=== PATIENT | female | born 1975 | race Caucasian/White ===

== ENCOUNTER 2017-07-30 13:00 | Emergency (ER) | payer MEDICAID, SELFPAY ==
[2017-07-30 13:01] VITALS: BP 126/76; PULSE 108; RESP 20; TEMP 37; O2SAT 96; BMI 29.0
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
--- NOTE | 2017-07-30 14:08 | PC.NURSE ---
1347:ADVISED DR CORTES THAT PT IS REPORTING BLURRED VISION AND ABDOMINAL PAIN. MD ORDERS HEAD CT AND FACIAL CT. WHEN RADIOLOGY COMES TO ROOM TO TRANSPORT PT TO RADIOLOGY, PT STATES, NO, I DON'T NEED ALL THAT, I JUST WANT TO GO HOME. PT EDUCATED ON RADIOLOGIC TESTS AND BLURRED VISION AND THAT THIS IS AGAINST MEDICAL ADVICE. MADE AWARE. PT SIGN'S AMA FORM FOR REFUSAL OF CT SCANS. PT STATES UNDERSTANDING OF REFUSAL.
[2017-07-30 14:09] VITALS: BP 113/68; PULSE 91
[2017-07-30 14:14] VITALS: BP 118/75; PULSE 97
[2017-07-30 14:15] VITALS: BP 111/72; PULSE 105
[2017-07-30 14:16] VITALS: BP 111/72; PULSE 98; RESP 18; TEMP 36.8; O2SAT 98
== END 2017-07-30 14:34 | disposition home or self-care (01) ==
LOC: ER 14:23
PROVIDERS: Emergency Provider Emergency Medicine
DX: K04.7 Periapical abscess without sinus (principal); K08.531 Fractured dental restorative material with loss of material; Z88.0 Allergy status to penicillin; Z88.5 Allergy status to narcotic agent; F17.200 Nicotine dependence, unspecified, uncomplicated
CPT/HCPCS: 96372; 99283

== ENCOUNTER 2019-03-27 19:43 | Inpatient (IN) ==
[2019-03-27 20:04] LABS: Basophils % 0.2 % (0.1-2.0); Eosinophils # 0.1 K/mm3 (0.0-0.4); Eosinophils % 0.6 % (0.1-12.0); Hematocrit 41.4 % (37.0-47.0); Hemoglobin 12.9 g/dL (12.2-16.2); Lymphocytes # 2.1 K/mm3 (0.7-4.5); Mean Corpuscular HGB Conc 31.2 g/dL (31.8-35.4); Mean Corpuscular Volume 90.6 fl (81-99); Monocytes # 0.8 K/mm3 (0.1-1.0); Monocytes % 6.7 % (1.7-9.3); Neutrophils # 8.9 K/mm3 (1.8-7.8); Neutrophils % 74.5 % (37.0-80.0); Platelet Count 341 K/mm3 (142-424); Red Blood Count 4.58 M/mm3 (4.20-5.40); Red Cell Distribution Width 14.1 % (11.5-17.5); White Blood Count 11.9 K/mm3 (4.8-10.8)
[2019-03-27 20:16] LABS: Albumin Level 3.7 gm/dL (3.4-5.0); Anion Gap 13.5 mEq/L (5-15); Bilirubin,Total 0.5 mg/dL (0.2-1.0); Calcium 8.3 mg/dL (8.5-10.1); Globulin 3.8 gm/dl (1.3-3.2); Total Protein,Serum 7.5 gm/dL (6.4-8.2)
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
[2019-03-28 04:53] LABS: Microscopic, Urine URINE MICROSCOPIC (MICROSCOPIC)
[2019-03-28 04:54] LABS: Appearance,Urine CLEAR (Clear); Bilirubin,Urine Negative (Negative); Blood, Urine Negative (Negative); Color,Urine YELLOW (Yellow); Glucose,Urine (UA) Negative (Negative); Ketones,Urine Negative (Negative); Leukocyte Esterase,Urine TRACE (Negative); Protein,Urine Negative (Negative); Specific Gravity, Urine <= 1.005 (1.005-1.030); Urobilinogen,Urine 0.2 EU/dl (0.2)
[2019-03-28 05:03] LABS: Amphetamine/Metha Screen,Urine Negative ng/mL (<1000); Barbiturates Screen,Urine Negative ng/mL (<200); Benzodiazepines Screen,Urine Positive ng/mL (<200); Cannabinoid Screen,Urine Negative ng/mL (<50); Cocaine Screen,Urine Negative ng/mL (<300); Methadone Screen,Urine Negative ng/mL (<300); Opiate Screen,Urine Positive ng/mL (<300); Phencyclidine Screen,Urine Negative ng/mL (<25)
[2019-03-28 05:20] LABS: Bacteria,Urine 1+ /lpf
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
[2019-03-28 06:58] LABS: Basophils % 0.4 % (0.1-2.0); Eosinophils # 0.1 K/mm3 (0.0-0.4); Eosinophils % 1.4 % (0.1-12.0); Hematocrit 37.4 % (37.0-47.0); Lymphocytes # 2.5 K/mm3 (0.7-4.5); Lymphocytes % 25.7 % (10-50); Mean Corpuscular HGB Conc 31.1 g/dL (31.8-35.4); Mean Corpuscular Volume 89.8 fl (81-99); Mean Platelet Volume 8.2 fl (7.4-10.4); Monocytes # 0.7 K/mm3 (0.1-1.0); Monocytes % 6.6 % (1.7-9.3); Neutrophils # 6.5 K/mm3 (1.8-7.8); Neutrophils % 65.9 % (37.0-80.0); Platelet Count 320 K/mm3 (142-424); Red Blood Count 4.16 M/mm3 (4.20-5.40); Red Cell Distribution Width 14.1 % (11.5-17.5); White Blood Count 9.9 K/mm3 (4.8-10.8)
[2019-03-28 07:07] LABS: Anion Gap 19.4 mEq/L (5-15); Calcium 8.4 mg/dL (8.5-10.1)
[2019-03-28 07:11] LABS: Hemoglobin 11.6 g/dL (12.2-16.2)
[2019-03-28 07:14] LABS: Chol/HDL Ratio 3.3 (1-3.5)
--- NOTE | 2019-03-28 07:42 | Pharmacy Consult Notes ---
[facility] Pharmacy VTE Monitoring - Patient Demographics Admission date: 03/27/19 Report Date: 03/28/19 Time: 07:42 Allergies/Adverse Reactions: Patient Allergies codeine [CODEINE] Allergy (Severe, Verified 07/30/17 13:39) Nausea penicillin G [PENICILLIN G] Allergy (Mild, Verified 07/30/17 13:39) Height: 1.65 m Weight: 81.647 kg Patient Problems: Current Active Problems Pancreatitis (Acute) Weakness of lower extremity (Acute) Lumbar disc disorder with myelopathy (Acute) - VTE Risk Labs: VTE Related Lab Results Hgb 11.6 g/dL (12.2-16.2) L D 03/28/19 06:25 Hct 37.4 % (37.0-47.0) 03/28/19 06:25 Plt Count 320 K/mm3 (142-424) 03/28/19 06:25 BUN 9 mg/dL (7-18) D 03/28/19 06:25 Creatinine 0.70 mg/dL (0.55-1.02) D 03/28/19 06:25 Estimated Creat Clear 134 mL/min (50-200) 03/28/19 06:25 Was VTE Risk Assessment Performed: Yes VTE Score: 1 VTE Risk Level: Very Low Risk - Prophylaxis VTE Prophylaxis Ordered?: Yes Types of VTE Prophylaxis: TEDS Knee High Location of Applied Device: Bilateral Lower Extremeties - VTE Diagnosis Confirmed Treatment or plan recommended: Continue Current Treatment
--- NOTE | 2019-03-29 07:11 | Progress Note ---
Internal Medicine - PN: Subj *Date: 03/29/19 *Time: 07:08 Interval history: Patient reports persistent abdominal pain although decreased in intensity compared to yesterday. She has tolerated both clear and full liquids and is hungry this morning. She denies nausea or vomiting. She reports continued difficulty moving the left leg especially with flexion of the left hip and extension of the left knee. She admits she is also developed some pain in her back. CT of the lumbar spine was performed yesterday but official report is unavailable at this time. Exam Vital signs and Labs for Last 24 Hours: Temp Pulse Resp BP Pulse Ox 98.6 F 85 18 122/68 97 03/29/19 03:30 03/29/19 03:30 03/29/19 03:30 03/29/19 03:30 03/28/19 20:15 Laboratory Results - last 24 hr 03/28/19 06:25: Hgb 11.6 L D 03/28/19 06:25: Sodium 137, Potassium 3.4 L, Chloride 96 L, Carbon Dioxide 25, Anion Gap 19.4 H, BUN 9 D, Creatinine 0.70 D, Estimated Creat Clear 134, Estimated GFR 91, Est GFR ( Amer) 111 D, Glucose 161 H, Calcium 8.4 L 03/28/19 06:25: Magnesium 1.9, Triglycerides 71, Cholesterol 108 L, LDL Cholesterol 61, VLDL Cholesterol 14, HDL Cholesterol 33, Cholesterol/HDL Ratio 3.3, Lipase 2722 H I & O for Last 24 hours: Intake & Output 03/26/19 03/27/19 03/28/19 03/29/19 11:59 11:59 11:59 11:59 Weight 180 lb Narrative: Patient is in no distress this morning. Abdomen is soft and nontender. Musculoskeletal exam reveals weakness with left hip flexion and left knee extension. I am unable to elicit a patellar reflex on the left this morning. Assessment and Plan (1) Pancreatitis Current visit: Yes Status: Acute Qualifiers: Chronicity: acute Pancreatitis type: unspecified pancreatitis type Acute pancreatitis complication: no infection or necrosis Qualified Code(s): K85.90 - Acute pancreatitis without necrosis or infection, unspecified Category: Medical Code(s): K85.90 - Acute pancreatitis without necrosis or infection, unspecified (2) Lumbar disc disorder with myelopathy Current visit: Yes Status: Acute Category: Medical Code(s): M51.06 - Intervertebral disc disorders with myelopathy, lumbar region - Assessment and plan all Dx Assessment and Plan for all problems:: 1. Advance diet. Regarding pancreatitis if she tolerates her low-fat diet she can be discharged home 2. Awaiting CT scan of lumbar spine report. Further decision making once that is available. I suspect patient is going to need neurosurgical evaluation in the near future
[2019-03-29 07:57] LABS: Albumin Level 3.1 gm/dL (3.4-5.0); Anion Gap 10.6 mEq/L (5-15); Basophils % 0.1 % (0.1-2.0); Bilirubin,Direct 0.1 mg/dL (0.0-0.2); Bilirubin,Indirect 0.1 mg/dL (0.0-0.9); Bilirubin,Total 0.2 mg/dL (0.2-1.0); Calcium 8.8 mg/dL (8.5-10.1); Eosinophils % 0.1 % (0.1-12.0); Hematocrit 34.6 % (37.0-47.0); Hemoglobin 10.4 g/dL (12.2-16.2); Lymphocytes # 2.2 K/mm3 (0.7-4.5); Lymphocytes % 13.7 % (10-50); Monocytes # 0.9 K/mm3 (0.1-1.0); Monocytes % 5.5 % (1.7-9.3); Neutrophils # 13.1 K/mm3 (1.8-7.8); Neutrophils % 80.6 % (37.0-80.0); Platelet Count 320 K/mm3 (142-424); Red Blood Count 3.81 M/mm3 (4.20-5.40); Total Protein,Serum 6.7 gm/dL (6.4-8.2); White Blood Count 16.3 K/mm3 (4.8-10.8)
[2019-03-29 09:56] LABS: Lymphocytes % 11 % (10-50); Monocytes % 5 % (2-9); Neutrophils % 82 % (42-76); Total Cells Counted 100
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
== END 2019-03-29 19:00 | disposition home or self-care (01) | DRG 439 ==
LOC: ER 19:43 → OB 19:43 → OBSVTOIN 03-28 01:09 → OB 03-28 01:36
PROVIDERS: ADMIT Internal Medicine Adolescent Medicine; ATTEND Family Medicine
CPT/HCPCS: 36415; 70450; 71010; 71045; 72125; 72131; 72148; 72170; 74177; 76376; 80048; 80053; 80061; 80076; 80305; 81001; 83690; 83735; 85007; 85014; 85018; 85025; 85048; 85049; 85651; 86140; 96374; 96375; 99285; J2405; Q9967

== ENCOUNTER 2019-03-30 18:28 | Outpatient (CLI) | payer MEDICAID, SELFPAY ==
[2019-03-30 20:00] VITALS: BP 138/80; PULSE 78; RESP 16; TEMP 36.7; O2SAT 99
== END 2019-03-30 20:00 | disposition home or self-care (01) ==
LOC: INF 18:29
PROVIDERS: PCP Family Medicine; Visit Provider Family Medicine
DX: M51.06 Intervertebral disc disorders with myelopathy, lumbar region (principal)
CPT/HCPCS: 96365; 96366

== ENCOUNTER 2019-10-22 17:49 | Emergency (ER) | payer MEDICAID, SELFPAY ==
[2019-10-22 18:18] VITALS: BP 144/94; PULSE 100; RESP 18; TEMP 36.8; O2SAT 99; BMI 27.4
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
[2019-10-22 18:32] LABS: Microscopic, Urine URINE MICROSCOPIC (MICROSCOPIC)
[2019-10-22 18:35] VITALS: BP 144/94; PULSE 100; RESP 18; TEMP 36.8; O2SAT 99
[2019-10-22 18:46] LABS: Appearance,Urine CLEAR (Clear); Blood, Urine Negative (Negative); Color,Urine YELLOW (Yellow); Glucose,Urine (UA) Negative (Negative); Ketones,Urine Negative (Negative); Leukocyte Esterase,Urine Negative (Negative); Nitrate,Urine Negative (Negative); Protein,Urine TRACE (Negative); Specific Gravity, Urine >= 1.030 (1.005-1.030); Urobilinogen,Urine 0.2 EU/dl (0.2)
[2019-10-22 19:21] LABS: Bilirubin,Urine Negative (Negative)
[2019-10-22 19:22] LABS: Bacteria,Urine Trace /lpf; WBC,Urine Occasional #/hpf (0-3)
[2019-10-25 10:28] LABS: Neisseria gonorrhoeae, NAA Negative (Negative)
== END 2019-10-22 18:43 | disposition home or self-care (01) ==
PROVIDERS: Emergency Provider Nurse Practitioner Family
DX: Z20.2 Contact with and (suspected) exposure to infections with a predominantly sexual mode of transmission (principal); Z88.0 Allergy status to penicillin
CPT/HCPCS: 81001; 87086; 87491; 87591; 99201

== ENCOUNTER 2020-05-25 02:53 | Emergency (ER) | payer MEDICAID, SELFPAY ==
[2020-05-25] VITALS (9 sets, daily range): BP systolic 116–152; BP diastolic 75–92; PULSE 75–135; RESP 12–22; TEMP 36.8; O2SAT 94–98; BMI 25.0
--- NOTE | 2020-05-25 03:08 | XR_ITS ---
PROCEDURE: XR CHEST PORTABLE Referring Doctor: Mir Goyal Patient Age:44Y CLINICAL HISTORY: overdose Unable to give history COMPARISON: No exams were available for comparison FINDINGS: Portable upright CXR performed today but compared to March 2019 and February 2018 CXR. Less optimal inspiration this somewhat accentuates a crowds markings towards bases with minor atelectasis suggested towards the lung bases but There also appears to be minimal vascular congestion compared to previous studies accentuation of upper lobe vessels on this upright portable; although the heart appears normal upper normal size. Only slightly larger than previous studies but this is in part accentuated by the portable AP CXR technique today No definitive focal pneumonia. Upper normal markings project over the anterior left 4th rib-suspect most likely reflecting some mild atelectasis and chronic changes and doubt early infiltrate No pneumothorax no pleural effusion. Chest wall intact. Nolvia and superior mediastinal structures reasonably stable slightly more generous right nolvia most likely reflects the less optimal inspiration IMPRESSION: Less optimal inspiration accentuates markings bilaterally. With suggestion of minor basilar atelectasis Upper normal density projected over the left anterior left 4th rib end I suspect reflect minimal atelectasis along with costochondral calcification Suggestion mild vascular engorgement with mid slight accentuation of upper lobe vascularity versus prior CXR studies. Heart upper normal in size.-correlation required Dictated by: Gabino Ewing MD 05/25/2020 11:43 Gabino Ewing MD in [place] 05/25/2020 11:43
[2020-05-25 03:42] LABS: Microscopic, Urine URINE MICROSCOPIC (MICROSCOPIC)
[2020-05-25 03:47] LABS: Basophils # 0.1 K/mm3 (0-0.2); Basophils % 0.6 % (0.1-2.0); Eosinophils # 0.1 K/mm3 (0.0-0.4); Eosinophils % 0.6 % (0.1-12.0); Hematocrit 36.9 % (37.0-47.0); Hemoglobin 12.7 g/dL (12.2-16.2); Lymphocytes % 30.7 % (10-50); Mean Corpuscular HGB Conc 34.4 g/dL (31.8-35.4); Mean Corpuscular Hemoglobin 29.6 pg (27.0-31.2); Mean Platelet Volume 8.2 fl (7.4-10.4); Monocytes # 0.8 K/mm3 (0.1-1.0); Neutrophils # 5.9 K/mm3 (1.8-7.8); Neutrophils % 60.1 % (37.0-80.0); Platelet Count 283 K/mm3 (142-424); Red Blood Count 4.29 M/mm3 (4.20-5.40); White Blood Count 9.9 K/mm3 (4.8-10.8)
[2020-05-25 03:53] LABS: Appearance,Urine CLEAR (Clear); Bilirubin,Urine Negative (Negative); Blood, Urine Negative (Negative); Color,Urine YELLOW (Yellow); Glucose,Urine (UA) Negative (Negative); Ketones,Urine Negative (Negative); Leukocyte Esterase,Urine Negative (Negative); Nitrate,Urine Negative (Negative); PH,Urine 6.5 (5.0-8.5); Protein,Urine Negative (Negative); Urobilinogen,Urine 0.2 EU/dl (0.2)
[2020-05-25 04:01] LABS: Barbiturates Screen,Urine Negative ng/ml (<200); Squamous Epithelial Cell,Urine Occasional #/hpf (0-5)
[2020-05-25 04:02] LABS: Benzodiazepines Screen,Urine Positive ng/ml (<200)
[2020-05-25 04:02] LABS: Alanine Aminotransferase 59 U/L (12-78); Albumin Level 4.2 g/dl (3.5-5.0); Albumin/Globulin Ratio 1.2 (1.1-1.8); Alkaline Phosphatase 129 U/L (38-126); Anion Gap 11.6 mEq/L (5-15); Aspartate Amino Transferase 68 U/L (14-36); Bilirubin,Total 0.5 mg/dl (0.2-1.3); Blood Urea Nitrogen 10 mg/dl (7-17); Calcium 9.5 mg/dl (8.4-10.2); Carbon Dioxide 26 mmol/L (22.0-30.0); Chloride 104 mmol/L (98-107); Creatinine Clearance Estimated 133 mL/min (50-200); Estimated Glomerular Filt Rate 109 ml/min (>60); GFR (African American) 131 ML/MIN (>60); Globulin 3.5 g/dL (1.3-3.2); Glucose 111 mg/dl (74-100); Potassium 3.6 mmoL/L (3.5-5.1); Sodium 138 mmol/L (136-145); Total Protein,Serum 7.7 g/dl (6.3-8.2)
[2020-05-25 04:03] LABS: Amphetamine/Metha Screen,Urine Positive ng/ml (<1000); Cocaine Screen,Urine Negative ng/ml (<300)
[2020-05-25 04:04] LABS: Methadone Screen,Urine Negative ng/ml (<300)
[2020-05-25 04:05] LABS: Cannabinoid Screen,Urine Negative ng/ml (<50); Opiate Screen,Urine Negative ng/ml (<300)
[2020-05-25 04:05] LABS: Ethyl Alcohol < 10 mg/dl (0-10)
[2020-05-25 04:06] LABS: Salicylate < 1.0 mg/dL (2.0-20.0)
[2020-05-25 04:06] LABS: Phencyclidine Screen,Urine Negative ng/ml (<25)
[2020-05-25 04:16] LABS: Coronavirus 19 IgG Antibody Negative (Negative); Coronavirus 19 IgM Antibody Negative (Negative)
[2020-05-25 04:17] LABS: Acetaminophen < 10 ug/ml (10-30)
[2020-05-25 04:19] LABS: Procalcitonin 0.054 ng/mL (0.0-2.0)
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
--- NOTE | 2020-05-25 06:25 | PC.NURSE ---
call placed to gordon, mother-per patient's request. stated she can't drive till daylight but that she will be here.
--- NOTE | 2020-05-25 08:07 | PC.NURSE ---
Pt brother called requesting information about pt, pt said i could tell him, he said he would come and get her.
== END 2020-05-25 08:26 | disposition home or self-care (01) ==
PROVIDERS: Emergency Provider Emergency Medicine
DX: T40.1X1A Poisoning by heroin, accidental (unintentional), initial encounter (principal); Y92.019 Unspecified place in single-family (private) house as the place of occurrence of the external cause; F17.210 Nicotine dependence, cigarettes, uncomplicated
CPT/HCPCS: 36415; 71045; 80053; 80305; 80329; 81001; 84145; 85025; 86328; 99284

== ENCOUNTER 2020-11-03 21:34 | Emergency (ER) | payer MEDICAID, SELFPAY ==
[2020-11-03 21:32] VITALS: BP 131/96; PULSE 117; RESP 19; TEMP 36.7; O2SAT 98; BMI 28.1
--- NOTE | 2020-11-03 21:57 | PC.NURSE ---
pt refused IV placement, lab drawn, or urine collection. Pt was assisted to the BR, given feminine hygiene products.
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
[2020-11-03 22:10] VITALS: BP 134/90; PULSE 109; RESP 18; TEMP 36.7; O2SAT 98
== END 2020-11-03 22:15 | disposition home or self-care (01) ==
PROVIDERS: Emergency Provider Emergency Medicine
DX: Z00.8 Encounter for other general examination (principal); F17.210 Nicotine dependence, cigarettes, uncomplicated; Z79.899 Other long term (current) drug therapy; Z88.5 Allergy status to narcotic agent
CPT/HCPCS: 99282

== ENCOUNTER 2020-12-09 01:32 | Emergency (ER) | payer MEDICAID, SELFPAY ==
--- NOTE | 2020-12-09 01:25 | ECG_ITS ---
APPROVED REPORT Exam: Resting ECG HR:116 bpm ECG Measurements Heart Rate 116 AXES OK 132 P 73 QRSd 72 QRS 72 QT 350 T 54 QTc 486 Conclusion Sinus tachycardia Otherwise normal ECG Electronically signed by : Johnny Johnson, 12/09/2020 21:59:41
[2020-12-09 01:30] VITALS: BP 125/94; PULSE 119; RESP 16; TEMP 36.7; O2SAT 98; BMI 24.3
--- NOTE | 2020-12-09 01:38 | XR_ITS ---
PROCEDURE INFORMATION: Exam: XR Chest Exam date and time: 12/09/2020 1:38 AM Age: 45 years old Clinical indication: Shortness of breath; Patient HX: Overdose PT SOB TECHNIQUE: Imaging protocol: XR of the chest. Views: 1 view. Total images: 1 COMPARISON: CR XR CHEST PORTABLE 05/25/2020 3:18 AM FINDINGS: Lungs: Unremarkable. No consolidation. Pleural spaces: Unremarkable. No pleural effusion. No pneumothorax. Heart/Mediastinum: Unremarkable. No cardiomegaly. Bones/joints: Unremarkable. IMPRESSION: No acute findings.
[2020-12-09 02:01] LABS: Basophils % 0.4 % (0.1-2.0); Eosinophils # 0.1 K/mm3 (0.0-0.4); Eosinophils % 1.4 % (0.1-12.0); Hematocrit 35.2 % (37.0-47.0); Hemoglobin 11.7 g/dL (12.2-16.2); Lymphocytes % 19.4 % (10-50); Mean Corpuscular HGB Conc 33.3 g/dL (31.8-35.4); Monocytes # 0.4 K/mm3 (0.1-1.0); Monocytes % 3.6 % (1.7-9.3); Neutrophils # 7.7 K/mm3 (1.8-7.8); Neutrophils % 75.3 % (37.0-80.0); Platelet Count 304 K/mm3 (142-424); Red Blood Count 4.04 M/mm3 (4.20-5.40); Red Cell Distribution Width 13.2 % (11.5-17.5); White Blood Count 10.3 K/mm3 (4.8-10.8)
[2020-12-09 02:03] LABS: Alanine Aminotransferase 65 U/L (12-78); Albumin Level 4.7 g/dl (3.5-5.0); Alkaline Phosphatase 108 U/L (38-126); Anion Gap 11.9 mEq/L (5-15); Aspartate Amino Transferase 59 U/L (14-36); Bilirubin,Direct 0.4 mg/dl (0.0-0.4); Bilirubin,Indirect 0.1 mg/dL (0.0-0.9); Bilirubin,Total 0.5 mg/dl (0.2-1.3); Bilirubin,Unconjugated 0.1 mg/dL (0.0-1.1); Blood Urea Nitrogen 9 mg/dl (7-17); Calcium 9.2 mg/dl (8.4-10.2); Carbon Dioxide 27 mmol/L (22.0-30.0); Chloride 107 mmol/L (98-107); Creatinine Clearance Estimated 102 mL/min (50-200); Estimated Glomerular Filt Rate 78 ml/min (>60); GFR (African American) 94 ML/MIN (>60); Glucose 117 mg/dl (74-100); Potassium 3.9 mmoL/L (3.5-5.1); Sodium 142 mmol/L (136-145); Total Protein,Serum 8.5 g/dl (6.3-8.2)
[2020-12-09 02:05] LABS: Acetaminophen < 10 ug/ml (10-30); Salicylate < 1.0 mg/dL (2.0-20.0)
--- NOTE | 2020-12-09 02:07 | HMH.EDOD ---
ED Disposition Clinical Impression: Poisoning by opiate or related narcotic Disposition: Home, Self-Care Condition on Discharge: Good Instructions: DI for Drug Overdose in Adults Additional Instructions: see pcp for follow up Referrals: Provider,Referral, [Primary Care Provider] - - Critical Care Critical Care Time: No Attestation: On 12/09/20, the high probability of a clinically significant, sudden or life threatening deterioration of the following system(s) required my full and direct attention, intervention and personal management. The time I documented below is in addition to time spent performing reported procedures but includes the following listed in this critical care notation. Medical Decision Making - Medical Records Medical records reviewed: Yes: I reviewed the patient's medical records. - Kit Inquiry Pt receiving controlled substance: No Vital Signs: 12/09/20 01:30 Temperature 98.0 F Temperature Source Oral Pulse Rate [Right Brachial] 119 H Respiratory Rate 16 Blood Pressure [Right Arm] 125/94 H Blood Pressure Mean [Right Arm] 104 Blood Pressure Source [Right Arm] Automatic Cuff Blood Pressure Position [Right Arm] Sitting 02 Sat by Pulse Oximetry 98 Oxygen Delivery Method Room Air - Lab Data Lab results reviewed: Yes: I reviewed the patient's lab results. Lab Results 12/09/20 01:40: Sodium 142, Potassium 3.9, Chloride 107, Carbon Dioxide 27, Anion Gap 11.9, BUN 9, Creatinine 0.80, Estimated Creat Clear 102, Estimated GFR 78, Est GFR ( Amer) 94, Glucose 117 H, Calcium 9.2, Total Bilirubin 0.5, Direct Bilirubin 0.4, Conjugated Bilirubin 0.0, Indirect Bilirubin 0.1, Unconjugated Bilirubin 0.1, AST 59 H, ALT 65, Alkaline Phosphatase 108, Troponin I < 0.01, Total Protein 8.5 H, Albumin 4.7, Salicylates < 1.0 L, Acetaminophen < 10 L 12/09/20 01:57: WBC 10.3, RBC 4.04 L, Hgb 11.7 L, Hct 35.2 L, MCV 87.0, MCH 29.0, MCHC 33.3, RDW 13.2, Plt Count 304, MPV 8.0, Neut % (Auto) 75.3, Lymph % (Auto) 19.4, [place] % (Auto) 3.6, Eos % (Auto) 1.4, Baso % (Auto) 0.4, Neut # (Auto) 7.7, Lymph # (Auto) 2.0, [place] # (Auto) 0.4, Eos # (Auto) 0.1, Baso # (Auto) 0.0 Result diagrams: 12/09/20 01:57 12/09/20 01:40 Orders (Tests/Meds): ORDERS Category Date Time Status XR chest portable Stat Exams 12/09/20 01:38 Taken Drug Screen,Urine Stat Lab 12/09/20 01:38 Ordered Lactic Acid Stat Lab 12/09/20 01:40 Received Troponin I Q3H Lab 12/09/20 04:45 Ordered Troponin I Q3H Lab 12/09/20 07:45 Ordered Urinalysis and Microscopic Stat Lab 12/09/20 01:38 Ordered Blood Culture Stat Micro 12/09/20 01:40 Received - Radiology Data #1 Image(s): Chest Image Reviewed: Yes I reviewed the patient's radiology image Preliminary Findings: Normal/NAD - ECG Data Tracing #1 Arrhythmias present: sinus tach Ischemic changes: non-specific ST-T wave changes Overdose HPI - General Chief Complaint: Overdose Stated Complaint: overdose on heroin Time Seen by Provider: 12/09/20 01:40 Mode of Arrival: EMS Source of Information: Patient, EMS, Medical Record Limitations: No Limitations Description of Symptoms (Recalled from ER Triage Doc. by RN): pt admits to snorting heroin for the first time in a long time . pt is alert, responsive, gcs 14. pt is able to move all extremities without issue. pt also took her normally scheduled neurontin, klonopin prior to inhaling the heroin. ems reported that patient received 4 mg intranasal x 2 per [place] and then 2mg narcan iv per ems report. - History of Present Illness HPI Narrative: heroin use tonight - pt with no other c/o MD complaint: accidental overdose Onset (ago): hour(s) Context: Accidental Overdose: wanted to get high Treatments Prior to Arrival: narcan - Related Data Home Medications Medication Instructions Recorded Confirmed Gabapentin [Gabapentin 300mg Cap] 300 mg PO DAILY 04/29/19 05/25/20 Naproxen [Naprosyn 500mg tablet] 5
[2020-12-09 02:23] LABS: Troponin I < 0.01 ng/ml (0.00-0.034)
[2020-12-09 03:23] LABS: Lactic Acid 1.2 mmol/L (0.7-2.1)
[2020-12-09 03:32] VITALS: BP 141/95; PULSE 82; RESP 18; TEMP 36.8; O2SAT 98
== END 2020-12-09 03:37 | disposition home or self-care (01) ==
PROVIDERS: Emergency Provider Emergency Medicine
DX: T40.1X1A Poisoning by heroin, accidental (unintentional), initial encounter (principal)
CPT/HCPCS: 71045; 80048; 80076; 80329; 83605; 84484; 85025; 87040; 93005; 96365; 99282

== ENCOUNTER → 2021-07-15 10:11 | Outpatient (CLI) | payer MEDICAID, SELFPAY | PROVIDERS: Visit Provider Nurse Practitioner | DX: U07.1 COVID-19 (principal) | CPT/HCPCS: C9803; U0003; U0005 ==

== ENCOUNTER → 2021-07-21 13:38 | Outpatient (CLI) | payer MEDICAID, SELFPAY | PROVIDERS: Visit Provider Nurse Practitioner | DX: U07.1 COVID-19 (principal) | CPT/HCPCS: C9803; U0003; U0005 ==

== ENCOUNTER → 2021-08-05 14:59 | Outpatient (CLI) | payer MEDICAID, SELFPAY | PROVIDERS: Visit Provider Nurse Practitioner | DX: U07.1 COVID-19 (principal) | CPT/HCPCS: C9803; U0003; U0005 ==

== ENCOUNTER → 2021-08-15 08:32 | Outpatient (CLI) | payer MEDICAID, SELFPAY | PROVIDERS: Visit Provider Nurse Practitioner | DX: U07.1 COVID-19 (principal) | CPT/HCPCS: C9803; U0003; U0005 ==

== ENCOUNTER 2021-08-23 07:50 | Inpatient (IN) | payer MEDICAID, SELFPAY ==
[2021-08-23] VITALS (7 sets, daily range): BP systolic 92–133; BP diastolic 57–84; PULSE 92–126; RESP 15–18; TEMP 37.2–37.9; O2SAT 96–99; BMI 29.9; BMI 35.2
--- NOTE | 2021-08-23 08:01 | HMH.EDGENADL ---
ED Disposition Clinical Impression: Herpes labialis Community acquired pneumonia Qualifiers: Laterality: right Lung location: upper lobe of lung Qualified Code(s): J18.9 - Pneumonia, unspecified organism Disposition: Admitted as Observation Condition on Discharge: [facility] - Critical Care Critical Care Time: No Attestation: On 08/23/21, the high probability of a clinically significant, sudden or life threatening deterioration of the following system(s) required my full and direct attention, intervention and personal management. The time I documented below is in addition to time spent performing reported procedures but includes the following listed in this critical care notation. Medical Decision Making - Kit Inquiry Pt receiving controlled substance: No Vital Signs: 08/23/21 07:51 08/23/21 08:29 08/23/21 09:00 Temperature 98.9 F Temperature Source Oral Pulse Rate 124 H 121 H Pulse Rate [Left Radial] 92 H Respiratory Rate 18 15 16 Blood Pressure 133/83 126/84 Blood Pressure [Right Arm] 111/71 Blood Pressure Mean 94 95 Blood Pressure Mean [Right Arm] 84 Blood Pressure Source [Right Arm] Automatic Cuff Blood Pressure Position [Right Arm] Sitting 02 Sat by Pulse Oximetry 97 96 96 Oxygen Delivery Method Room Air - Lab Data Lab Results 08/23/21 08:25: WBC 29.1 H*, RBC 4.05 L, Hgb 11.7 L, Hct 34.7 L, MCV 85.5, MCH 28.9, MCHC 33.8, RDW 13.2, Plt Count 305, MPV 8.3, Neut % (Auto) 87.4 H, Lymph % (Auto) 5.9 L, [place] % (Auto) 5.4, Eos % (Auto) 0.7, Baso % (Auto) 0.6, Neut # (Auto) 25.4 H, Lymph # (Auto) 1.7, [place] # (Auto) 1.6 H, Eos # (Auto) 0.2, Baso # (Auto) 0.2, Total Counted 100, Neutrophils % (Manual) 75, Band Neutrophils % 5.0, Lymphocytes % (Manual) 11, Monocytes % (Manual) 8, Eosinophils % (Manual) 1, Platelet Estimate Normal, RBC Morphology Normal 08/23/21 08:25: Sodium 129 L, Potassium 3.3 L, Chloride 101, Carbon Dioxide 23, Anion Gap 8.3, BUN 8, Creatinine 0.70, Estimated Creat Clear 129, Estimated GFR 90, Est GFR ( Amer) 109, Glucose 176 H, Calcium 7.9 L, Total Bilirubin 1.2, AST 48 H, ALT 53, Alkaline Phosphatase 126, Troponin I < 0.01, Total Protein 7.4, Albumin 3.6, Globulin 3.8 H, Albumin/Globulin Ratio 0.9 L 08/23/21 08:25: Lactate 1.6 Result diagrams: 08/23/21 08:25 08/23/21 08:25 Orders (Tests/Meds): ED MEDICATIONS Generic Name Dose Route Start Last Admin Trade Name Deborah PRN Reason Stop Dose Admin Acyclovir 400 mg 08/23/21 09:30 08/23/21 09:26 Acyclovir 400mg Tab PO 08/30/21 09:29 400 mg 5XDAY MAYRA Administration Ceftriaxone Sodium 1 gm/ 50 mls @ 100 mls/hr 08/23/21 09:00 08/23/21 09:16 Sodium Chloride IV 09/06/21 08:59 100 mls/hr Q24H MAYRA Administration Azithromycin 500 mg/ Sodium 250 mls @ 250 mls/hr 08/23/21 09:00 08/23/21 09:17 Chloride IV 09/06/21 08:59 250 mls/hr Q24H MAYRA Administration Discontinued Medications Generic Name Dose Route Start Last Admin Trade Name Deborah PRN Reason Stop Dose Admin Ketorolac Tromethamine 30 mg 08/23/21 09:04 08/23/21 09:17 Ketorolac 30mg/Ml Vial IV 08/23/21 09:05 30 mg ONCE ONE Administration Ondansetron HCl 4 mg 08/23/21 08:39 08/23/21 08:40 Ondansetron 4mg/2ml Vial IV 08/23/21 08:40 4 mg ONCE ONE Administration Promethazine HCl 12.5 mg 08/23/21 09:17 08/23/21 09:18 Promethazine Hcl 25mg/Ml 1ml Vial IV 08/23/21 09:18 12.5 mg ONCE ONE Administration Sodium Chloride 1,000 ml 08/23/21 08:12 08/23/21 08:41 Sodium Chloride 0.9% 1000ml Bag IV 08/23/21 08:13 1,000 ml BOLUS ONE Administration Sodium Chloride 25 ml 08/23/21 09:17 08/23/21 09:18 Sodium Chloride 0.9% 25ml Bag IV 08/23/21 09:18 25 ml ONCE ONE Administration ORDERS Category Date Time Status Rapid PCR Covid and Flu A/B Stat Lab 08/23/21 09:20 Ordered Troponin I Q3H Lab 08/23/21 11:15 Ordered Troponin I Q3H Lab 08/23/21 14:15 Ordered Blood Culture Stat Micro 02
--- NOTE | 2021-08-23 08:10 | XR_ITS ---
PROCEDURE INFORMATION: Exam: XR Chest Exam date and time: 08/23/2021 8:10 AM Age: 46 years old Clinical indication: Fever and shortness of breath; Additional info: Cough, fever, right lung pain// tested positive for covid 07/22/21 has prolonged symptoms TECHNIQUE: Imaging protocol: XR of the chest. Views: 2 views. COMPARISON: CR XR CHEST PORTABLE 12/09/2020 2:17 AM FINDINGS: Lungs: 8 cm mass in the right upper lobe is not the typical appearance of COVID-19. Consider chest CT for further evaluation to rule out malignancy. This mass was not present in December 2020. Pleural spaces: Unremarkable. No pleural effusion. No pneumothorax. Heart/Mediastinum: Unremarkable. No cardiomegaly. Bones/joints: Unremarkable. IMPRESSION: 8 cm mass in the right upper lobe is not the typical appearance of COVID-19. [address] chest CT for further evaluation to rule out malignancy. This mass was not present in December 2020.
--- NOTE | 2021-08-23 08:28 | ECG_ITS ---
APPROVED REPORT Exam: Resting ECG HR:124 bpm ECG Measurements Heart Rate 124 AXES IL 137 P 61 QRSd 78 QRS 57 QT 315 T 42 QTc 389 Conclusion SINUS TACHYCARDIA ABNORMAL RHYTHM ECG UNCONFIRMED REPORT Electronically signed by : Johnny Johnson MD 08/24/2021 18:00:44
--- NOTE | 2021-08-23 08:32 | PC.NURSE ---
pt to radiology
--- NOTE | 2021-08-23 08:39 | PC.NURSE ---
pt back from radiology. Hooked back up to vital signs.
[2021-08-23 08:44] LABS: Basophils # 0.2 K/mm3 (0-0.2); Basophils % 0.6 % (0.1-2.0); Eosinophils # 0.2 K/mm3 (0.0-0.4); Eosinophils % 0.7 % (0.1-12.0); Hematocrit 34.7 % (37.0-47.0); Hemoglobin 11.7 g/dL (12.2-16.2); Lymphocytes # 1.7 K/mm3 (0.7-4.5); Lymphocytes % 5.9 % (10-50); Mean Corpuscular HGB Conc 33.8 g/dL (31.8-35.4); Mean Corpuscular Hemoglobin 28.9 pg (27.0-31.2); Mean Corpuscular Volume 85.5 fl (81-99); Mean Platelet Volume 8.3 fl (7.4-10.4); Monocytes # 1.6 K/mm3 (0.1-1.0); Monocytes % 5.4 % (1.7-9.3); Neutrophils # 25.4 K/mm3 (1.8-7.8); Neutrophils % 87.4 % (37.0-80.0); Platelet Count 305 K/mm3 (142-424); Red Blood Count 4.05 M/mm3 (4.20-5.40); Red Cell Distribution Width 13.2 % (11.5-17.5); White Blood Count 29.1 K/mm3 (4.8-10.8)
[2021-08-23 08:45] LABS: Chloride 101 mmol/L (98-107)
[2021-08-23 08:46] LABS: Potassium 3.3 mmoL/L (3.5-5.1); Sodium 129 mmol/L (136-145)
[2021-08-23 08:48] LABS: Alanine Aminotransferase 53 U/L (12-78); Alkaline Phosphatase 126 U/L (38-126); Aspartate Amino Transferase 48 U/L (14-36); Bilirubin,Total 1.2 mg/dl (0.2-1.3); Blood Urea Nitrogen 8 mg/dl (7-17); Creatinine Clearance Estimated 129 mL/min (50-200); Estimated Glomerular Filt Rate 90 ml/min (>60); GFR (African American) 109 ML/MIN (>60); Lactic Acid 1.6 mmol/L (0.7-2.1)
[2021-08-23 08:49] LABS: Albumin Level 3.6 g/dl (3.5-5.0); Albumin/Globulin Ratio 0.9 (1.1-1.8); Anion Gap 8.3 mEq/L (5-15); Calcium 7.9 mg/dl (8.4-10.2); Carbon Dioxide 23 mmol/L (22.0-30.0); Globulin 3.8 g/dL (1.3-3.2); Glucose 176 mg/dl (74-100); MANUAL DIFFERENTIAL MANUAL DIFFERENTIAL (MANUAL DIFF); Total Protein,Serum 7.4 g/dl (6.3-8.2)
[2021-08-23 09:05] LABS: Troponin I < 0.01 ng/ml (0.00-0.034)
--- NOTE | 2021-08-23 09:05 | PC.NURSE ---
has been paged
--- NOTE | 2021-08-23 09:13 | PC.NURSE ---
Dr. Johnson returned call back to the ED at this time, speaking with Dr. Mccabe
--- NOTE | 2021-08-23 09:16 | PC.NURSE ---
Spoke with tobacco warehouse agent about admission.
[2021-08-23 09:17] LABS: Eosinophils % 1 % (0-3); Lymphocytes % 11 % (10-50); Monocytes % 8 % (2-9); Neutrophils % 75 % (42-76); Platelet Estimate Normal; RBC Morphology Normal; Total Cells Counted 100
--- NOTE | 2021-08-23 09:19 | PC.NURSE ---
updated family about pt status and admission per pt request
--- NOTE | 2021-08-23 09:24 | CT_ITS ---
PROCEDURE INFORMATION: Exam: CT Chest With Contrast; Diagnostic Exam date and time: 08/23/2021 9:24 AM Age: 46 years old Clinical indication: Other: Mass vs infiltrate rul TECHNIQUE: Imaging protocol: Diagnostic computed tomography of the chest with contrast. Radiation optimization: All CT scans at this facility use at least one of these dose optimization techniques: automated exposure control; mA and/or kV adjustment per patient size (includes targeted exams where dose is matched to clinical indication); or iterative reconstruction. Contrast material: ISOVUE; Contrast volume: 75 ml; Contrast route: IV; COMPARISON: CR XR CHEST 2V 08/23/2021 8:27 AM FINDINGS: Lungs: Consolidation in the right upper lobe with air bronchograms consistent with pneumonia.. It measures 8.2 by 4.8 by 8.4 cm. . Pleural spaces: Unremarkable. No pneumothorax. No pleural effusion. Heart: Unremarkable. No cardiomegaly. No pericardial effusion. Aorta: Unremarkable. No aortic aneurysm. Lymph nodes: Pathologic lymph node anterior to the trachea 13 x 11 mm Bones/joints: Unremarkable. No acute fracture. Soft tissues: Unremarkable. IMPRESSION: Consolidation in the right upper lobe with air bronchograms consistent with pneumonia.. It measures 8.2 by 4.8 by 8.4 cm. . Recommend followup studies to document resolution
[2021-08-23 09:42] LABS: Coronavirus 19, PCR Not Detected (NotDetected); Influenza A, PCR Not Detected (NotDetected); Influenza B, PCR Not Detected (NotDetected)
--- NOTE | 2021-08-23 09:51 | PC.NURSE ---
report given to Linda LYNN
--- NOTE | 2021-08-23 16:05 | PC.NURSE ---
PT IS RESTING IN BED. MEDICATED PER SEP FOR DISCOMFORT. PT HAS COMPLAINED OF A HEADACHE ON AND OFF T/O THE SHIFT. MEDICATED FOR FEVER THIS SHIFT. PT HAS BLISTERS NOTED TO CHIN AND LOWER LIP. LUNG SOUNDS DIMINISHED. NON PRODUCTIVE COUGH. ABDOMEN SOFT/NON TENDER WITH ACTIVE BOWEL SOUNDS. PT STATED DURING ADMISSION SHE DOES NOT TAKE ANY HOME MEDICATIONS. WILL CONTINUE TO MONITOR.
[2021-08-24] VITALS (7 sets, daily range): BP systolic 95–130; BP diastolic 60–80; PULSE 80–94; RESP 16–21; TEMP 36.6–36.9; O2SAT 94–97; BMI 35.8
--- NOTE | 2021-08-24 06:16 | PC.NURSE ---
Pt has had c/o of headache, earache, and rib pain this shift. Medicating per MAR for pain. Contacted Dr. Johnson at beginning of my shift for additional orders, pt states morphine is not taking care of her pain - new orders received and carried out by this RN. Also reported pts positive blood cultures to Dr. Johnson. During care rounds, pt has seemed to be resting/sleeping well. IV infusing per order. Pt receiving acyclovir for lip/chin lesions. Pt is maintaining an O2 sat between 94-99 on RA. No other needs voiced at this time. Call light in reach.
[2021-08-24 06:26] LABS: Basophils # 0.1 K/mm3 (0-0.2); Eosinophils # 0.2 K/mm3 (0.0-0.4); Lymphocytes # 2.8 K/mm3 (0.7-4.5); Red Cell Distribution Width 13.3 % (11.5-17.5)
[2021-08-24 06:31] LABS: Basophils % 0.3 % (0.1-2.0); Hemoglobin 9.6 g/dL (12.2-16.2); Mean Corpuscular HGB Conc 32.3 g/dL (31.8-35.4); Mean Corpuscular Hemoglobin 28.7 pg (27.0-31.2); Mean Corpuscular Volume 88.7 fl (81-99); Mean Platelet Volume 8.3 fl (7.4-10.4); Monocytes # 0.9 K/mm3 (0.1-1.0); Monocytes % 4.9 % (1.7-9.3); Neutrophils # 14.4 K/mm3 (1.8-7.8); Neutrophils % 78.7 % (37.0-80.0); Platelet Count 284 K/mm3 (142-424); Red Blood Count 3.36 M/mm3 (4.20-5.40); White Blood Count 18.3 K/mm3 (4.8-10.8)
[2021-08-24 06:32] LABS: Hematocrit 29.8 % (37.0-47.0); MANUAL DIFFERENTIAL MANUAL DIFFERENTIAL (MANUAL DIFF)
[2021-08-24 06:35] LABS: Chloride 108 mmol/L (98-107); Potassium 3.6 mmoL/L (3.5-5.1); Sodium 136 mmol/L (136-145)
[2021-08-24 06:38] LABS: Anion Gap 4.6 mEq/L (5-15); Blood Urea Nitrogen 11 mg/dl (7-17); Calcium 7.4 mg/dl (8.4-10.2); Carbon Dioxide 27 mmol/L (22.0-30.0); Creatinine Clearance Estimated 155 mL/min (50-200); Estimated Glomerular Filt Rate 90 ml/min (>60); GFR (African American) 109 ML/MIN (>60); Glucose 155 mg/dl (74-100)
[2021-08-24 06:47] LABS: Lymphocytes % 15 % (10-50); Monocytes % 1 % (2-9); Neutrophils % 75 % (42-76); Platelet Estimate Normal; RBC Morphology Normal; Total Cells Counted 100
--- NOTE | 2021-08-24 07:19 | HMH.HP ---
*Admission Date: 08/23/21 *Chief complaint: My lungs hurt *History of present illness: 46-year-old female presented to the emergency department yesterday afternoon with a month-long episode of illness. Patient's illness began in mid July when she tested positive for Covid while having URI symptoms. Patient felt like she recovered from Covid but subsequently developed ear pain that is gradually gotten worse along with headaches. Recently patient has developed right chest pain and was having fevers at home of unknown degree. Patient's was concerned she was getting worse and life may be in danger and brought her to the emergency department yesterday. Patient was found to have a large right upper lobe pneumonia. White blood cell count was elevated. Patient did not have an oxygen requirement. Patient was admitted for community-acquired pneumonia and started on Rocephin and azithromycin. Patient had a low-grade fever after admission to 100.2. Overnight blood cultures are positive and suspicious for strep pneumonia [facility] History I have reviewed the patient's past medical history: Yes Medical History: Reports:: Anxiety, Hyperlipidemia Denies:: Cancer, Diabetes Mellitus Type 1, Diabetes Mellitus Type 2, MRSA *Have you ever received a pneumonia vaccine?: No *Have you received a flu vaccine this season?: No Other Medical History: Reports: Anemia Amputation: No Fractures: No - *Social History Last grade of school completed: GED Smoking Status: Current every day smoker Tobacco Type: cigarettes # Packs/Day (cigarettes): 1 Alcohol Intake: never Substance Use Type: heroin *Occupational Status:: unemployed Housing: house *Travel in the last 8 weeks: None - Psychiatric History Pschychiatric History:: Reports:: Anxiety Family Hx:: No significant family history Review of Systems - Constitutional Reports body ache(s), Reports chills, Reports lack of energy, Reports malaise - Eyes Denies blurry vision, Denies itchy eyes - ENT Reports ear pain - *Cardiovascular Reports chest pain at rest (Right chest) - *Respiratory Reports change in phlegm color (Dark green), Reports chest congestion, Reports cough, Reports shortness of breath - *Gastrointestinal Denies abdominal pain - *Neurologic Reports headache(s) Meds Home Medications Medication Instructions Recorded Confirmed Type No Known Home Medications 08/23/21 08/23/21 History Allergies Allergy/AdvReac Type Severity Reaction Status Date / Time codeine [CODEINE] Allergy Severe Nausea Verified 10/22/20 13:14 penicillin G [PENICILLIN G] Allergy Mild Verified 10/22/20 13:14 acetaminophen Allergy Verified 10/22/20 13:14 [From Tylenol-Codeine #3] Penicillins Allergy Verified 10/22/20 13:14 Exam Vital signs and Labs for Last 24 Hours: Temp Pulse Resp BP Pulse Ox 97.9 F 87 16 95/68 L 96 08/24/21 04:00 08/24/21 04:00 08/24/21 04:00 08/24/21 04:00 08/24/21 04:00 Laboratory Results - last 24 hr 08/23/21 08:25: WBC 29.1 H*, RBC 4.05 L, Hgb 11.7 L, Hct 34.7 L, MCV 85.5, MCH 28.9, MCHC 33.8, RDW 13.2, Plt Count 305, MPV 8.3, Neut % (Auto) 87.4 H, Lymph % (Auto) 5.9 L, [place] % (Auto) 5.4, Eos % (Auto) 0.7, Baso % (Auto) 0.6, Neut # (Auto) 25.4 H, Lymph # (Auto) 1.7, [place] # (Auto) 1.6 H, Eos # (Auto) 0.2, Baso # (Auto) 0.2, Total Counted 100, Neutrophils % (Manual) 75, Band Neutrophils % 5.0, Lymphocytes % (Manual) 11, Monocytes % (Manual) 8, Eosinophils % (Manual) 1, Platelet Estimate Normal, RBC Morphology Normal 08/23/21 08:25: Sodium 129 L, Potassium 3.3 L, Chloride 101, Carbon Dioxide 23, Anion Gap 8.3, BUN 8, Creatinine 0.70, Estimated Creat Clear 129, Estimated GFR 90, Est GFR ( Amer) 109, Glucose 176 H, Calcium 7.9 L, Total Bilirubin 1.2, AST 48 H, ALT 53, Alkaline Phosphatase 126, Troponin I < 0.01, Total Protein 7.4, Albumin 3.6, Globulin 3.8 H, Albumin/Globulin Ratio 0.9 L 08/23/21 08:25: Lactate 1.6 08/23/21 09:15: SARS-CoV-2 (PC
--- NOTE | 2021-08-24 08:28 | P.CONPHA_ITS ---
[facility] Pharmacy VTE Monitoring - Patient Demographics Admission date: 08/23/21 Report Date: 08/24/21 Time: 08:28 Allergies/Adverse Reactions: Patient Allergies codeine [CODEINE] Allergy (Severe, Verified 10/22/20 13:14) Nausea penicillin G [PENICILLIN G] Allergy (Mild, Verified 10/22/20 13:14) acetaminophen [From Tylenol-Codeine #3] Allergy (Verified 10/22/20 13:14) Penicillins Allergy (Verified 10/22/20 13:14) Height: 1.65 m Weight: 97.568 kg Patient Problems: Current Active Problems (This Medical Record has been edited. Action required.) Community acquired pneumonia (Acute) Herpes labialis (Acute) Streptococcal bacteremia (Acute) Bacteremia due to Streptococcus pneumoniae (Acute) - VTE Risk Labs: VTE Related Lab Results Hgb 9.6 g/dL (12.2-16.2) L D 08/24/21 06:18 Hct 29.8 % (37.0-47.0) L 08/24/21 06:18 Plt Count 284 K/mm3 (142-424) 08/24/21 06:18 BUN 11 mg/dl (7-17) D 08/24/21 06:18 Creatinine 0.70 mg/dl (0.52-1.04) 08/24/21 06:18 Estimated Creat Clear 155 mL/min (50-200) 08/24/21 06:18 VTE Score: 1 - Prophylaxis VTE Prophylaxis Ordered?: Yes Types of VTE Prophylaxis: TEDS Knee High Location of Applied Device: Bilateral Lower Extremeties
--- NOTE | 2021-08-24 09:26 | HMH.PHAINT ---
Home med rec complete
--- NOTE | 2021-08-24 19:02 | PC.NURSE ---
MEDICATED PER MAR WITH PRN MORPHINE FOR PLUERITIC PAIN. MD WAS NOTIFIED FOR INCREASED PAIN. NEW ORDER FOR PRN MOTRIN AND A ONE TIME DOSE OF 20 MG PREDNISONE. TOLERATING RA WELL. AMBULATES IN ROOM INDEPENDENTLY
[2021-08-25] VITALS (9 sets, daily range): BP systolic 115–168; BP diastolic 72–102; PULSE 82–95; RESP 16–22; TEMP 36.5–36.9; O2SAT 95–99; BMI 35.5
[2021-08-25 06:58] LABS: Basophils # 0.1 K/mm3 (0-0.2); Basophils % 0.4 % (0.1-2.0); Eosinophils # 0.1 K/mm3 (0.0-0.4); Eosinophils % 0.4 % (0.1-12.0); Hematocrit 30.8 % (37.0-47.0); Hemoglobin 9.7 g/dL (12.2-16.2); Lymphocytes # 2.4 K/mm3 (0.7-4.5); Mean Corpuscular HGB Conc 31.5 g/dL (31.8-35.4); Mean Corpuscular Hemoglobin 28.1 pg (27.0-31.2); Mean Corpuscular Volume 89.3 fl (81-99); Mean Platelet Volume 9.3 fl (7.4-10.4); Monocytes # 0.8 K/mm3 (0.1-1.0); Monocytes % 5.4 % (1.7-9.3); Neutrophils # 11.4 K/mm3 (1.8-7.8); Neutrophils % 77.7 % (37.0-80.0); Platelet Count 365 K/mm3 (142-424); Red Blood Count 3.45 M/mm3 (4.20-5.40); Red Cell Distribution Width 14.1 % (11.5-17.5); White Blood Count 14.7 K/mm3 (4.8-10.8)
--- NOTE | 2021-08-25 07:17 | HMH.ACPN2 ---
Internal Medicine - PN: Subj *Date: 08/25/21 *Time: 07:17 Interval history: Patient reports feeling better. Cough is produced only small amounts of thick brownish-yellow sputum. Exam Vital signs and Labs for Last 24 Hours: Temp Pulse Resp BP Pulse Ox 97.7 F 91 H 21 118/72 99 08/25/21 03:28 08/25/21 03:28 08/25/21 03:28 08/25/21 03:28 08/25/21 03:28 Laboratory Results - last 24 hr 08/25/21 06:35: WBC 14.7 H, RBC 3.45 L, Hgb 9.7 L, Hct 30.8 L, MCV 89.3, MCH 28.1, MCHC 31.5 L, RDW 14.1, Plt Count 365 D, MPV 9.3, Neut % (Auto) 77.7, Lymph % (Auto) 16.0, [place] % (Auto) 5.4, Eos % (Auto) 0.4, Baso % (Auto) 0.4, Neut # (Auto) 11.4 H, Lymph # (Auto) 2.4, [place] # (Auto) 0.8, Eos # (Auto) 0.1, Baso # (Auto) 0.1 I & O for Last 24 hours: Intake & Output 08/22/21 08/23/21 08/24/21 08/25/21 11:59 11:59 11:59 11:59 Intake Total 0 / 2040 600 / 600 Balance 2040 / 2040 600 / 600 Weight 211 lb 7 oz 215 lb 1.6 oz 213 lb 4.8 oz Microbiology Reports for the Last 24 Hours: Microbiology 08/23/21 08:25 Blood Blood Culture - Preliminary Gram Positive Cocci 08/23/21 08:25 Blood Blood Culture - Preliminary Gram Positive Cocci Narrative: Patient looks more comfortable than yesterday. Lung exam reveals persistence of rales in the right upper lobe Both sets of blood cultures are growing gram-positive cocci with PCR suggesting strep pneumonia Assessment and Plan (1) Community acquired pneumonia Status: Acute Qualifiers: Laterality: right Lung location: upper lobe of lung Qualified Code(s): J18.9 - Pneumonia, unspecified organism Category: Medical Code(s): J18.9 - Pneumonia, unspecified organism (2) Streptococcal bacteremia Status: Acute Category: Medical Code(s): R78.81 - Bacteremia; B95.5 - Unspecified streptococcus as the cause of diseases classified elsewhere (3) Bacteremia due to Streptococcus pneumoniae Status: Acute Category: Medical Code(s): R78.81 - Bacteremia; B95.3 - Streptococcus pneumoniae as the cause of diseases classified elsewhere - Assessment and plan all Dx Assessment and Plan for all problems:: 1. Continue Rocephin and azithromycin while awaiting finalization of blood cultures 2. Transition morphine to oral hydrocodone for pain control 3. Continue prednisone 20 mg daily for pleuritic chest pain
--- NOTE | 2021-08-25 09:43 | SW/DCPLANNER ---
This patient will more than likely need IV antibiotics at time of discharge. Patient is agreeable to return to [facility] outpatient services for IV antibiotics. Patient could potentially be ready for discharge tomorrow.
--- NOTE | 2021-08-25 14:53 | PC.NURSE ---
AOX4, ABLE TO MAKE NEEDS KNOWN TO STAFF. TOLERATING RA WELL WITH O2 SATS >95%. SHE HAS BEEN MEDICATED PER MAR WITH NORCO AT REGULAR INTERVALS WITH GOOD EFFECTIVENESS NOTED. NO OTHER COMPLAINTS VOICED TO THIS RN.
--- NOTE | 2021-08-25 15:29 | DIET.NUTRFU ---
RD saw patient today to review meal intake. She has been recovering from COVID for about 1 month. She denies any weight loss and feels her appetite is improving, consumed 1/2 sandwich and some fruit today. Denies any N/V, haven't had BM but denies any cramping or discomfort. No dietary triggers at this time, will continue to monitor meal intake
[2021-08-26 04:00] VITALS: BP 152/97; PULSE 92; RESP 22; TEMP 36.8; O2SAT 99
[2021-08-26 05:03] VITALS: BMI 35.5
[2021-08-26 06:52] LABS: Basophils # 0.1 K/mm3 (0-0.2); Basophils % 0.7 % (0.1-2.0); Eosinophils # 0.1 K/mm3 (0.0-0.4); Eosinophils % 0.7 % (0.1-12.0); Hematocrit 30.8 % (37.0-47.0); Hemoglobin 9.8 g/dL (12.2-16.2); Lymphocytes # 3.8 K/mm3 (0.7-4.5); Mean Corpuscular HGB Conc 31.9 g/dL (31.8-35.4); Mean Corpuscular Hemoglobin 28.1 pg (27.0-31.2); Mean Corpuscular Volume 88.1 fl (81-99); Mean Platelet Volume 8.8 fl (7.4-10.4); Monocytes # 0.6 K/mm3 (0.1-1.0); Monocytes % 5.7 % (1.7-9.3); Neutrophils # 6.2 K/mm3 (1.8-7.8); Platelet Count 391 K/mm3 (142-424); Red Blood Count 3.49 M/mm3 (4.20-5.40); White Blood Count 10.8 K/mm3 (4.8-10.8)
--- NOTE | 2021-08-26 07:14 | HMH.ACPN2 ---
Internal Medicine - PN: Subj *Date: 08/26/21 *Time: 07:14 Interval history: Patient reports improvement in dyspnea as well as pleuritic chest pain. No acute events over the last 24 hours. Exam Vital signs and Labs for Last 24 Hours: Temp Pulse Resp BP Pulse Ox 98.3 F 92 H 22 152/97 H 99 08/26/21 04:00 08/26/21 04:00 08/26/21 04:00 08/26/21 04:00 08/26/21 04:00 Laboratory Results - last 24 hr 08/26/21 06:19: WBC 10.8 D, RBC 3.49 L, Hgb 9.8 L, Hct 30.8 L, MCV 88.1, MCH 28.1, MCHC 31.9, RDW 14.0, Plt Count 391, MPV 8.8, Neut % (Auto) 58.0, Lymph % (Auto) 35.0, [place] % (Auto) 5.7, Eos % (Auto) 0.7, Baso % (Auto) 0.7, Neut # (Auto) 6.2, Lymph # (Auto) 3.8, [place] # (Auto) 0.6, Eos # (Auto) 0.1, Baso # (Auto) 0.1 I & O for Last 24 hours: Intake & Output 08/23/21 08/24/21 08/25/21 08/26/21 11:59 11:59 11:59 11:59 Intake Total 2039 840 / 840 480 / 480 Balance 2039 / 2039 840 / 840 480 / 480 Weight 211 lb 7 oz 215 lb 1.6 oz 213 lb 4.8 oz 213 lb 4.8 oz Microbiology Reports for the Last 24 Hours: Microbiology 08/23/21 08:25 Blood Blood Culture - Final Streptococcus pneumoniae 08/23/21 08:25 Blood Blood Culture - Final Streptococcus pneumoniae Narrative: Patient appears more comfortable. There is improved aeration in the right upper lobe. Rales in the right upper lobe have resolved. Heart has a regular rate and rhythm Assessment and Plan (1) Community acquired pneumonia Status: Acute Qualifiers: Laterality: right Lung location: upper lobe of lung Qualified Code(s): J18.9 - Pneumonia, unspecified organism Category: Medical Code(s): J18.9 - Pneumonia, unspecified organism (2) Streptococcal bacteremia Status: Acute Category: Medical Code(s): R78.81 - Bacteremia; B95.5 - Unspecified streptococcus as the cause of diseases classified elsewhere (3) Bacteremia due to Streptococcus pneumoniae Status: Acute Category: Medical Code(s): R78.81 - Bacteremia; B95.3 - Streptococcus pneumoniae as the cause of diseases classified elsewhere - Assessment and plan all Dx Assessment and Plan for all problems:: 1. Patient will be discharged today. She will complete 7 days of IV Rocephin for strep pneumonia bacteremia followed by a week of oral cefdinir 600 mg daily 2. Prescriptions ibuprofen and hydrocodone will be given to help with pleuritic chest pain
--- NOTE | 2021-08-26 07:16 | HMH.DCSUM ---
General - General Admission date:: 08/23/21 Discharge date: 08/26/21 HPI HPI: 46-year-old female presented to the emergency department yesterday afternoon with a month-long episode of illness. Patient's illness began in mid July when she tested positive for Covid while having URI symptoms. Patient felt like she recovered from Covid but subsequently developed ear pain that is gradually gotten worse along with headaches. Recently patient has developed right chest pain and was having fevers at home of unknown degree. Patient's was concerned she was getting worse and life may be in danger and brought her to the emergency department yesterday. Patient was found to have a large right upper lobe pneumonia. White blood cell count was elevated. Patient did not have an oxygen requirement. Patient was admitted for community-acquired pneumonia and started on Rocephin and azithromycin. Patient had a low-grade fever after admission to 100.2. Overnight blood cultures are positive and suspicious for strep pneumonia Hospital Course Hospital Course: Patient was admitted with diagnosis of right upper lobe pneumonia and started on community-acquired pneumonia protocol with Rocephin and azithromycin. Patient had both sets of blood cultures grow strep pneumonia that was sensitive to Rocephin. Patient never had any hypoxia but did have significant right-sided pleuritic chest pain. CT angiogram performed in the ER was negative for pulmonary embolism. Patient responded well to antibiotic regimen with improvement in dyspnea and pleuritic chest pain daily. White blood cell count was elevated on admission to 28,000 and decreased daily. Patient initially required morphine for treatment of pain and this was transitioned to oral hydrocodone. On the patient had had significant improvement in pain with identification of strep pneumonia in the blood cultures. Patient will complete a course of IV Rocephin lasting 1 week with last dose to be received on August 29. Patient will complete another week of oral antibiotics (Omnicef) afterward. Prescriptions for ibuprofen 600 mg every 6 hours and hydrocodone 7-1/2 mg every 6 hours will be sent to patient's pharmacy for continued treatment of pleuritic chest pain. Objective Vital signs: Temp Pulse Resp BP Pulse Ox 98.3 F 92 H 22 152/97 H 99 08/26/21 04:00 08/26/21 04:00 08/26/21 04:00 08/26/21 04:00 08/26/21 04:00 no acute distress - *Routine Respiratory Exam Present: CTA bilaterally - *Routine Cardiovascular Exam Present: RRR - *Routine Abdominal Exam Present: soft, normoactive bowel sounds. Absent: tenderness Results Labs on day of discharge: Labs from last 24 hours 08/26/21 06:19 WBC 10.8 D RBC 3.49 L Hgb 9.8 L Hct 30.8 L MCV 88.1 MCH 28.1 MCHC 31.9 RDW 14.0 Plt Count 391 MPV 8.8 Neut % (Auto) 58.0 Lymph % (Auto) 35.0 [place] % (Auto) 5.7 Eos % (Auto) 0.7 Baso % (Auto) 0.7 Neut # (Auto) 6.2 Lymph # (Auto) 3.8 [place] # (Auto) 0.6 Eos # (Auto) 0.1 Baso # (Auto) 0.1 DS: Diagnosis - Discharge Diagnosis (1) Community acquired pneumonia Status: Acute (2) Streptococcal bacteremia Status: Acute (3) Bacteremia due to Streptococcus pneumoniae Status: Acute Discharge Plan - Patient Discharge Instructions ACTIVITY: Continue current activity DIET: continue same diet Patient Instructions: DI for Pneumonia -- Adult - Follow up Plan Disposition: Home, Self-Care Condition at discharge:: Improved Home Medications: Home Medications Medication Instructions Recorded Confirmed Type Multivitamin 1 tab PO DAILY 08/24/21 08/24/21 History Cefdinir [Omnicef 300mg Capsule] 300 mg PO BID #14 cap 08/26/21 Rx Hydrocodone/Acetaminophen [Lortab 1 tab PO Q6HP PRN #20 tab 08/26/21 Rx 7.5/325mg tablet] Ibuprofen [Motrin 600mg 600 mg PO Q6H #30 tab 08/26/21 Rx Tablet] Prescriptions/Medi
[2021-08-26 08:00] VITALS: BP 170/107; PULSE 89; RESP 15; TEMP 37; O2SAT 94
--- NOTE | 2021-08-26 10:33 | PC.NURSE ---
spoke with dr vasques about inability to obtain an iv at this time. patient was not tolerating sticks well. asked md about midline who stated it was okay to order the midline if it was needed.
--- NOTE | 2021-08-26 12:30 | PC.NURSE ---
Pt was draped in and R upper arm prepped for midline insertion. Using US guidance, access was obtained but d/t constricting of vein and spasms there was inability to thread. Tuyet Hull RN called to bedside to assist and attempt to gain access for insertion, unable to thread once again on R upper arm. New midline kit opened and pt prepped and re-draped on left side. Access was gained by mysef in L upper arm, no difficulty threading catheter and blood returned noted. Midline cute @ 13 cm, flushes easily, blood return noted still. Pt reports no pain. Midline secured and dressed per protocol. Pt and @ bedside, reviewed once again care of midline and s/s of infection. Pt and verbalized understanding. Midline pamphlet reviewed as well and given to patient. Pt's nurse TAVIA Ornelas,RN given okay to use midline.
--- NOTE | 2021-08-26 12:43 | PC.NURSE ---
pt has been discharged with a midline. pt was instructed to be here around [id number] tomorrow for outpatient antibiotics. pt's meds were sent to [facility] and she has a follow up appointment with .
== END 2021-08-26 12:47 | disposition home or self-care (01) | DRG 194 ==
LOC: ER 09:20 → 2ND 09:24
PROVIDERS: Admitting Provider Internal Medicine Adolescent Medicine; Emergency Provider Emergency Medicine; PCP Family Medicine; Visit Provider Family Medicine
DX: J18.9 Pneumonia, unspecified organism (principal); R78.81 Bacteremia; B00.1 Herpesviral vesicular dermatitis; Z20.822 Contact with and (suspected) exposure to COVID-19; F17.210 Nicotine dependence, cigarettes, uncomplicated
CPT/HCPCS: 36410; 36415; 71046; 71260; 80048; 80053; 83605; 84484; 85007; 85025; 87040; 87077; 87186; 93005; 96365; 96367; 96375; 99285; C1751; C9803; J0456; J0696; J2405; Q9967; U0003; U0005

== ENCOUNTER 2021-08-27 13:28 | Outpatient (CLI) | payer MEDICAID, SELFPAY ==
[2021-08-27 13:58] VITALS: BP 149/85; PULSE 82; RESP 18; O2SAT 96
[2021-08-27 14:45] VITALS: BP 171/99; PULSE 80; RESP 18
== END 2021-08-27 14:45 | disposition home or self-care (01) ==
LOC: INF 13:29
PROVIDERS: PCP Family Medicine; Visit Provider Family Medicine
DX: J18.9 Pneumonia, unspecified organism (principal); R78.81 Bacteremia
CPT/HCPCS: 96365; J0696

== ENCOUNTER 2021-08-28 08:24 | Outpatient (CLI) | payer MEDICAID, SELFPAY ==
[2021-08-28 13:20] VITALS: BP 150/100; PULSE 68; RESP 20; TEMP 36.9; O2SAT 95
[2021-08-28 14:20] VITALS: BP 149/97; PULSE 68; RESP 20; O2SAT 98
== END 2021-08-28 14:20 | disposition home or self-care (01) ==
LOC: INF 08:24
PROVIDERS: PCP Family Medicine; Visit Provider Family Medicine
DX: J18.9 Pneumonia, unspecified organism (principal); R78.81 Bacteremia
CPT/HCPCS: 96365; J0696

== ENCOUNTER 2021-08-29 13:20 | Outpatient (CLI) | payer MEDICAID, SELFPAY | END 2021-08-29 14:32 | disposition home or self-care (01) | PROVIDERS: PCP Family Medicine; Visit Provider Family Medicine | DX: J18.9 Pneumonia, unspecified organism (principal); R78.81 Bacteremia | CPT/HCPCS: 96365; J0696 ==

== ENCOUNTER 2021-10-21 23:07 | Emergency (ER) | payer MEDICAID, SELFPAY ==
[2021-10-21 23:07] VITALS: BP 154/107; PULSE 104; RESP 16; TEMP 37; O2SAT 100; BMI 27.8
--- NOTE | 2021-10-21 23:28 | PC.NURSE ---
ice pack applied
--- NOTE | 2021-10-21 23:42 | XR_ITS ---
PROCEDURE INFORMATION: Exam: XR Left Knee Exam date and time: 10/21/2021 11:49 PM Age: 46 years old Clinical indication: Pain; Knee; Left; Additional info: Knee pain TECHNIQUE: Imaging protocol: XR Left knee. Views: 4 or more views. COMPARISON: CR XR KNEE LT 3V 04/29/2019 12:20 PM FINDINGS: Bones/joints: Normal. Soft tissues: Normal. IMPRESSION: No acute findings.
--- NOTE | 2021-10-22 00:32 | HMH.EDGENADL ---
ED Disposition Clinical Impression: Patellar dislocation Qualifiers: Encounter type: initial encounter Laterality: left Qualified Code(s): S83.005A - Unspecified dislocation of left patella, initial encounter Disposition: Home, Self-Care Condition on Discharge: Good Referrals: Lisa Griffin APRN [Primary Care Provider] - Adán Rooney JR, MD [Physician] - - Critical Care Critical Care Time: No Attestation: On 10/21/21, the high probability of a clinically significant, sudden or life threatening deterioration of the following system(s) required my full and direct attention, intervention and personal management. The time I documented below is in addition to time spent performing reported procedures but includes the following listed in this critical care notation. Medical Decision Making - Medical Records Medical records reviewed: Yes: I reviewed the patient's medical records. - Kit Inquiry Pt receiving controlled substance: No Vital Signs: 10/21/21 23:07 Temperature 98.6 F Temperature Source Oral Pulse Rate [Left] 104 H Respiratory Rate 16 Blood Pressure [Right Arm] 154/107 H Blood Pressure Mean [Right Arm] 122 02 Sat by Pulse Oximetry 100 Oxygen Delivery Method Room Air Orders (Tests/Meds): ED MEDICATIONS Discontinued Medications Generic Name Dose Route Start Last Admin Trade Name Freq PRN Reason Stop Dose Admin Hydrocodone Bitart/Acetaminophen 1 tab 10/21/21 23:41 10/22/21 00:52 Hydrocodone/Apap 5/325 Mg Tablet PO 10/21/21 23:42 1 tab ONCE ONE Administration Medical Decision Narrative: Patient is a 46-year-old female presenting with a chief complaint of acute left knee pain. Differential diagnosis includes, but is not limited to, fracture, dislocation, patella dislocation, ligament injury. Patient is hemodynamically stable on initial assessment. She is able to extend her left knee joint but with pain. She has tenderness at the inferior aspect of her patella. She was evaluated with x-ray of the left knee and treated with p.o. [place]. X-ray of the knee shows no acute fracture or dislocation or effusion. Patient's presentation is consistent with a patellar dislocation, spontaneously reduced. Patient was placed in a knee immobilizer, given referral to the orthopedic surgeon on an outpatient basis and counseled regarding return precautions, including how to recognize signs and symptoms of a DVT. She continues to be in pain and was given an IV dose of Toradol and morphine. Discharged in a stable condition. General Adult HPI - General Chief complaint: PAIN Stated complaint: left knee pain Time Seen by Provider: 10/21/21 23:20 Mode of Arrival: Wheelchair Limitations: No Limitations Description of Symptoms (Recalled from ER Triage Doc. by RN): pt reports left knee pain 03/13 the pt reports that she has had a feeling like it had been popping in and out for a few weeks now but this time it has stayed like this and is causing intense pain that is shooting up to the hip the pt reports no previous injury in this knee nut a possible stroke aprox 2 years ago - History of Present Illness HPI narrative: Monse is a 46yo F denies medical history is presenting for chief complaint of acute left knee pain. She states that 1 week ago, she felt something pop out of place and popped back in. It happened again today. She denies any traumatic injury and states she was just squatting down. She felt intense pain in her knee and it buckled underneath her. Again, she felt something pop in and out and now she has pain of her patella and has not attempted to bear weight. Taken ibuprofen for pain at home. She denies any twisting motion, prior injury to this knee or prior surgeries on this knee. She does not take any medications, denies blood thinner use or head injury. - Related Data Allergies Allergy/AdvReac Type Severity Reaction Status Date / Time codeine [CODEINE] Allergy Severe Nausea Veri
[2021-10-22 02:50] VITALS: BP 125/78; PULSE 79; RESP 18; TEMP 36.8; O2SAT 98
== END 2021-10-22 03:13 | disposition home or self-care (01) ==
PROVIDERS: Emergency Provider Emergency Medicine; PCP Nurse Practitioner Family
DX: S83.005A Unspecified dislocation of left patella, initial encounter (principal); X50.0XXA Overexertion from strenuous movement or load, initial encounter; F41.9 Anxiety disorder, unspecified; E78.5 Hyperlipidemia, unspecified; F17.210 Nicotine dependence, cigarettes, uncomplicated; Z88.0 Allergy status to penicillin; Z88.5 Allergy status to narcotic agent
CPT/HCPCS: 73564; 96372; 96375; 99284

== ENCOUNTER 2021-11-03 14:38 | Emergency (ER) | payer MEDICAID, SELFPAY ==
[2021-11-03 15:29] VITALS: BP 151/109; PULSE 113; RESP 20; TEMP 36.9; O2SAT 98; BMI 28.9
--- NOTE | 2021-11-03 16:12 | HMH.EDUTC ---
[facility] [place] Clinical Impression: Encounter for laboratory testing for COVID-19 virus Disposition: Home, Self-Care Condition on Discharge: Good Instructions: Preventing the Spread of Coronavirus Discharge Instructions Additional Instructions: Drink plenty of fluids. Take tylenol for pain or fever. Return if you begin to have difficulty breathing. Follow up with your regular doctor. GO TO THE ER FOR ANY WORSENING SYMPTOMS Referrals: Provider,Referral, MD [Primary Care Provider] - Time of Disposition: 16:15 Medical Decision Making - Medical Records Medical records reviewed: No: I reviewed the patient's medical records. - Kit Inquiry Pt receiving controlled substance: No Vital Signs: 11/03/21 15:29 11/03/21 16:26 Temperature 98.4 F 98.4 F Temperature Source Oral Pulse Rate 85 Pulse Rate [Left] 113 H Respiratory Rate 20 20 Blood Pressure 120/85 Blood Pressure [Right Arm] 151/109 H Blood Pressure Mean [Right Arm] 123 02 Sat by Pulse Oximetry 98 [facility] [place] - General Stated complaint: covid test Time Seen by Provider: 11/03/21 16:12 Mode of Arrival: Ambulatory Source of Information: Patient Limitations: No Limitations Description of Symptoms (Recalled from Triage Doc. by RN): pt states that she had covid in [facility] and has not felt good since. would like to be rested for covid HEENT Symptoms (Recalled from RN notes): No Resp Symptoms (Recalled from RN notes): Yes Skin Symptoms (Recalled from RN notes): No MS Symptoms (Recalled from RN notes): No Functional Status (Recalled from RN notes): wnl - History of Present Illness Provider Complaint: She is here because she was off work for covid-19 for the past 1 month. She was hositialized with covid-19 pneumonia. She is better now, but she needs a covid test to be allowed to return to her work. - Related Data Previous Rx's Medication Instructions Recorded naproxen sodium 500 mg 500 mg PO BID #30 tab 10/23/21 tablet,extended release 24 hr mphase Allergies Allergy/AdvReac Type Severity Reaction Status Date / Time codeine [CODEINE] Allergy Severe Nausea Verified 11/03/21 15:35 penicillin G [PENICILLIN G] Allergy Mild Verified 11/03/21 15:35 acetaminophen Allergy Verified 11/03/21 15:35 [From Tylenol-Codeine #3] Penicillins Allergy Verified 11/03/21 15:35 - Worker's Comp Is this a Worker's Comp case?: No [facility] History - Hepatitis A Screen Attestation statement:: This patient has been screened for Hepatitis A risk factors. I have reviewed the patient's past medical history: Yes Medical History: Reports:: Anxiety, Hyperlipidemia Denies:: Cancer, Diabetes Mellitus Type 1, Diabetes Mellitus Type 2, MRSA Other Medical History: Reports: Anemia Other Surgeries: Yes: Cholecystectomy, , Tubal Ligation Amputation: No Fractures: No - Social History Smoking Status: Current every day smoker Tobacco Type: cigarettes # Packs/Day (cigarettes): 1 Alcohol Intake: never Substance Use Type: heroin Occupational Status: unemployed Housing: house Household Members: spouse - Psychiatric History Pschychiatric History:: Reports:: Anxiety Family Hx:: No significant family history ROS Obtained: Yes All systems reviewed & no additional complaints - Constitutional Constitutional: Reports system reviewed and no additional complaints, except as docu - Eyes Eyes: Reports system reviewed and no additional complaints, except as docu - ENT Ears, Nose, Mouth, and Throat: Reports system reviewed and no additional complaints, except as docu - Cardiovascular Cardiovascular: Reports system reviewed and no additional complaints, except as docu - Respiratory Respiratory: Reports system reviewed and no additional complaints, except as docu - Gastrointestinal Gastrointestingal: Reports: system reviewed and no additional complaints, except as docu Physical Exam - General General appearance: alert, in no
[2021-11-03 16:26] VITALS: BP 120/85; PULSE 85; RESP 20; TEMP 36.9
== END 2021-11-03 16:27 | disposition home or self-care (01) ==
PROVIDERS: Emergency Provider Nurse Practitioner Family
DX: Z03.89 Encounter for observation for other suspected diseases and conditions ruled out (principal); E78.5 Hyperlipidemia, unspecified; F41.9 Anxiety disorder, unspecified; F17.210 Nicotine dependence, cigarettes, uncomplicated; Z20.822 Contact with and (suspected) exposure to COVID-19; Z86.16 Personal history of COVID-19; Z88.0 Allergy status to penicillin; Z88.5 Allergy status to narcotic agent; Z88.6 Allergy status to analgesic agent
CPT/HCPCS: 99212; C9803; G0463; U0003; U0005

== ENCOUNTER 2021-12-19 21:43 | Emergency (ER) | payer MEDICAID, SELFPAY ==
[2021-12-19 21:36] VITALS: BP 148/96; PULSE 126; RESP 22; TEMP 36.8; O2SAT 96; BMI 30.9
--- NOTE | 2021-12-19 22:23 | HMH.EDMCLR ---
ED Disposition Clinical Impression: Medical clearance for incarceration Left knee sprain Qualifiers: Encounter type: initial encounter Involved ligament of knee: unspecified ligament Qualified Code(s): S83.92XA - Sprain of unspecified site of left knee, initial encounter Disposition: Home, Self-Care Condition on Discharge: Good Instructions: DI for Knee Pain Additional Instructions: see pcp for follow up Referrals: Provider,Referral, [Primary Care Provider] - - Critical Care Critical Care Time: No Attestation: On 12/19/21, the high probability of a clinically significant, sudden or life threatening deterioration of the following system(s) required my full and direct attention, intervention and personal management. The time I documented below is in addition to time spent performing reported procedures but includes the following listed in this critical care notation. Medical Decision Making - Medical Records Medical records reviewed: Yes: I reviewed the patient's medical records. - Kit Inquiry Pt receiving controlled substance: No Vital Signs: 12/19/21 21:36 Temperature 98.2 F Temperature Source Oral Pulse Rate [Left] 126 H Respiratory Rate 22 Blood Pressure [Right Arm] 148/96 H Blood Pressure Mean [Right Arm] 113 02 Sat by Pulse Oximetry 96 Oxygen Delivery Method Room Air - Lab Data Lab results reviewed: Yes: I reviewed the patient's lab results. Orders (Tests/Meds): ED MEDICATIONS Generic Name Dose Route Start Last Admin Trade Name Freq PRN Reason Stop Dose Admin Ondansetron HCl 4 mg 12/19/21 22:22 Ondansetron 4mg/5ml Kristi Udc PO 12/19/21 22:23 ONCE ONE Medical Decision Narrative: pt with lt knee swelling with grossly stable - Medical Clearance HPI - General Chief complaint: Medical Clearance Stated complaint: Possible OD Time Seen by Provider: 12/19/21 22:23 Mode of Arrival: Ambulatory Source of Information: Patient, EMS, Medical Record Limitations: No Limitations Description of Symptoms (Recalled from ER Triage Doc. by RN): pt states she has no medical reason to be seen she just threw up because she was upset - History of Present Illness HPI Narrative: pt denied any trauma or drug use and was only sleeping - has ongoing lt knee injury complaint: medical clearance requested Onset (ago): hour(s) Place: street Traumatic Symptoms: denies traumatic injury Associated Symptoms: denies other symptoms Treatments Prior to Arrival: none Home medications: Previous Rx's Medication Instructions Recorded naproxen sodium 500 mg 500 mg PO BID #30 tab 10/23/21 tablet,extended release 24 hr mphase Allergies/Adverse reactions: Allergies Allergy/AdvReac Type Severity Reaction Status Date / Time codeine [CODEINE] Allergy Severe Nausea Verified 11/03/21 15:35 penicillin G [PENICILLIN G] Allergy Mild Verified 11/03/21 15:35 acetaminophen Allergy Verified 11/03/21 15:35 [From Tylenol-Codeine #3] Penicillins Allergy Verified 11/03/21 15:35 [facility] History - Hepatitis A Screen Attestation statement:: This patient has been screened for Hepatitis A risk factors. I have reviewed the patient's past medical history: Yes Medical History: Reports:: Anxiety, Hyperlipidemia Denies:: Cancer, Diabetes Mellitus Type 1, Diabetes Mellitus Type 2, MRSA Other Medical History: Reports: Anemia Other Surgeries: Yes: Cholecystectomy, , Tubal Ligation Amputation: No Fractures: No - Social History Smoking Status: Current every day smoker Tobacco Type: cigarettes # Packs/Day (cigarettes): 1 Alcohol Intake: never Substance Use Type: heroin Occupational Status: unemployed Housing: house Household Members: spouse - Psychiatric History Pschychiatric History:: Reports:: Anxiety Family Hx:: No significant family history ROS Obtained: Yes All systems reviewed & no additional complaints - Constitutional Constitutional: Denies fever(s) - E
--- NOTE | 2021-12-19 22:25 | PC.NURSE ---
Pt refused IV and LABS
[2021-12-19 22:28] VITALS: BP 148/96; PULSE 111; RESP 22; TEMP 36.9; O2SAT 98
== END 2021-12-19 22:33 | disposition home or self-care (01) ==
PROVIDERS: Emergency Provider Emergency Medicine; PCP Family Medicine
DX: S83.92XA Sprain of unspecified site of left knee, initial encounter (principal); D64.9 Anemia, unspecified; F41.9 Anxiety disorder, unspecified; F17.210 Nicotine dependence, cigarettes, uncomplicated; Z88.0 Allergy status to penicillin; Z88.5 Allergy status to narcotic agent; Z88.6 Allergy status to analgesic agent
CPT/HCPCS: 99282; S0119

== ENCOUNTER 2023-03-13 17:37 | Emergency (ER) | payer MEDICAID, SELFPAY ==
[2023-03-13 17:39] VITALS: BP 133/94; PULSE 104; RESP 18; TEMP 36.9; O2SAT 100; BMI 29.1
--- NOTE | 2023-03-13 17:56 | XR_ITS ---
PROCEDURE INFORMATION: Exam: XR Left Ribs with PA Chest Exam date and time: 03/13/2023 5:59 PM Age: 47 years old Clinical indication: Injury or trauma; Rib area, left side; Crushing; Injury details: Fall 1 week ago TECHNIQUE: Imaging protocol: Radiologic exam of the left ribs with PA chest. Views: 3 views COMPARISON: CT CHEST W CON 08/23/2021 10:03 AM FINDINGS: Lungs: Unremarkable. No consolidation. Pleural spaces: Unremarkable. No pleural effusion. No pneumothorax. Heart/Mediastinum: Unremarkable. No cardiomegaly. Bones/joints: There are subtle deformities of the left posterolateral 9th and 10th ribs which could reflect chronic fractures and correlation for point tenderness is recommended. Intraperitoneal space: There are right upper quadrant surgical clips suggesting prior cholecystectomy. IMPRESSION: 1. There are subtle deformities of the left posterolateral 9th and 10th ribs which could reflect chronic fractures and correlation for point tenderness is recommended. 2. No dense parenchymal consolidation, pleural effusion, or pneumothorax.
--- NOTE | 2023-03-13 18:16 | PC.NURSE ---
PT RETURNED FROM XR
--- NOTE | 2023-03-13 18:25 | PC.NURSE ---
DR MARCUM AT BEDSIDE
--- NOTE | 2023-03-13 18:34 | HMH.EDGENADL ---
Discharge Plan Disposition Patient Disposition: Home, Self-Care Chief Complaint: PAIN Prescriptions Prescriptions: No Action naproxen sodium 500 mg tablet, ER multiphase 24 hr 500 mg PO BID Qty: 30 0RF Referrals Follow up/Referrals: Provider,Referral, [Primary Care Provider] - See instructions Activity Restrictions/Add. Instructions Additional Instructions/Restrictions: Call your family doctor to establish care for this visit to the emergency department and schedule follow-up within 48 hours to ensure improvement. If you have any worsening of your condition or any other concerning signs or symptoms, return to the emergency department or your primary care doctor for further evaluation. Take Tylenol 1000 mg every 6 hours (4 times daily) and ibuprofen 400 mg every 6 hours (4 times daily) as needed with food and water to prevent GI upset and kidney damage. Clinical Impressions Clinical Impression: Rib pain on left side Discharge ED Provider: Erich Watson General Adult HPI General Chief complaint: PAIN Stated complaint: AO pain left ribs 03/07 Time Seen by Provider: 03/13/23 18:01 Mode of Arrival: Ambulatory Source of Information: Patient Limitations: No Limitations Description of Symptoms (Recalled from ER Triage Doc. by RN): PT REPORTS FALL ON TUESDAY, LANDED ON FLOOR. C/O RIB PAIN UNDER LEFT BREAST History of Present Illness HPI narrative: 47-year-old female with history of polysubstance abuse, smoking presenting with left-sided chest wall pain. Patient states that she was about 7 days prior to arrival when she had an acute onset left-sided chest pain. She fell and hit the floor on that same left side. Has had chest pain since that time it is made worse with application of pressure. Denies shortness of breath, nausea or vomiting, fevers or chills, medications trying to make it better. No neurologic deficits. No history of DVT or PE or risk factors for these. Related Data Previous Rx's Medication Instructions Recorded naproxen sodium 500 mg 500 mg PO BID #30 tabs 10/23/21 tablet,extended release 24 hr mphase Allergies Allergy/AdvReac Type Severity Reaction Status Date / Time codeine [CODEINE] Allergy Severe Nausea Verified 11/03/21 15:35 penicillin G [PENICILLIN G] Allergy Mild Verified 11/03/21 15:35 acetaminophen Allergy Verified 11/03/21 15:35 [From Tylenol-Codeine #3] Penicillins Allergy Verified 11/03/21 15:35 [facility] Disclaimer: The information contained in this section may have been updated after the patient was seen, as this information can be updated by other users. Social History (System 10/22/20 @ 13:14 by Teresa Womack) Smoking Status: Current every day smoker tobacco type: cigarettes packs per day: 1 alcohol intake: never substance use type: heroin current occupational status: unemployed Travel in the last 8 weeks: None household members: spouse housing: house caffeine: No ROS Obtained: Yes All systems reviewed & no additional complaints except as documented Physical Exam General General appearance: alert, in no apparent distress and other ( ) Head Head exam: atraumatic and normocephalic Eye Eye exam: Present normal appearance, PERRL and EOMI ENT ENT exam: Present mucous membranes moist Neck Neck exam: Present normal inspection, full ROM and trachea midline Chest Chest inspection: Present symmetric chest wall rise and tenderness (left ant axillary line. No outward signs of trauma) Respiratory Respiratory exam: Present normal lung sounds bilaterally; Absent respiratory distress, wheezes, stridor, accessory muscle use or prolonged expiratory phase Cardiovascular Cardiovascular exam: Present regular rate and normal rhythm Abdominal Exam Abdominal exam: Present soft; Absent distention, tenderness, guarding, rebound, rigidity or normal bowel sounds Extremities Exam Extremities exam: Absent edema Neurological Exam Neurological exam: Present
--- NOTE | 2023-03-13 18:41 | PC.NURSE ---
Rounded on pt, let her know that I would be placing an IV and collecting blood work order. She states I hate needles! You are not sticking me with one . notified of this and reports the patient is welcome to decline care offered .
--- NOTE | 2023-03-13 19:14 | PC.NURSE ---
Report from SHANE Jeffers. Rounded on patient and she still refuses labs/IV at this time. Attending notified once more. Awaiting re-evaluation.
[2023-03-13 19:36] VITALS: BP 131/86; PULSE 76; RESP 19; TEMP 36.8; O2SAT 96
== END 2023-03-13 19:36 | disposition home or self-care (01) ==
PROVIDERS: Emergency Provider Emergency Medicine
DX: R07.81 Pleurodynia (principal); F17.210 Nicotine dependence, cigarettes, uncomplicated; W19.XXXA Unspecified fall, initial encounter
CPT/HCPCS: 71101; 99283

== ENCOUNTER 2024-03-01 17:31 | Emergency (ER) | payer MEDICAID, SELFPAY ==
[2024-03-01 17:56] VITALS: BP 171/117; PULSE 116; RESP 20; TEMP 36.6; O2SAT 97; BMI 31.2
--- NOTE | 2024-03-01 18:20 | EXP.UTC ---
Discharge Plan Disposition Patient Disposition: Home, Self-Care Condition: Good Prescriptions Prescriptions: New clindamycin HCl 300 mg capsule 300 mg PO Q8H Qty: 30 0RF mupirocin 2 % ointment 1 applic topical TID 7 Days Qty: 15 2RF No Action naproxen sodium 500 mg tablet, ER multiphase 24 hr 500 mg PO BID Qty: 30 0RF Referrals Follow up/Referrals: Provider,Referral, MD [Primary Care Provider] - See instructions Activity Restrictions/Add. Instructions Additional Instructions/Restrictions: Keep the affected area clean and dry. Follow up with your regular doctor. Take the antibiotics as directed and apply the topical antibiotics as directed. Use a q-tip to apply the topical anitibiotic ointment (mupirocin) in your nare. Apply warm wet compresses to the affected area three or four times per day. GO TO THE ER FOR ANY WORSENING SYMPTOMS Clinical Impressions Clinical Impression: Abscess of nose, Cellulitis Instructions Patient Instructions: Cellulitis, Mupirocin, Ketorolac Injection Print Language Print Language: Uzbek Discharge ED Provider: Stephen Go [facility] General Stated complaint: facial swelling Mode of Arrival: Ambulatory Source of Information: Patient Limitations: No Limitations Time Seen by Provider: 03/01/24 18:20 Description of Symptoms (Recalled from Triage Doc. by RN): swollen face,eye,nose HEENT Symptoms (Recalled from RN notes): Yes Resp Symptoms (Recalled from RN notes): No Skin Symptoms (Recalled from RN notes): Yes MS Symptoms (Recalled from RN notes): No Functional Status (Recalled from RN notes): na History of Present Illness Provider Complaint: She states that for the past 3 days she has had a sore area in her right nostril. Today she began having redness and swelling of her nose. She denies any fever, chills, and malaise. She is a type 2 diabetic. Related Data Previous Rx's ?Medication ?Instructions ?Recorded naproxen sodium 500 mg 500 mg PO BID #30 tabs 10/23/21 tablet,extended release 24 hr mphase clindamycin HCl 300 mg capsule 300 mg PO Q8H #30 caps 03/01/24 mupirocin 2 % topical ointment 1 applic topical TID 7 days #15 03/01/24 grams Allergies Allergy/AdvReac Type Severity Reaction Status Date / Time codeine [CODEINE] Allergy Severe Nausea Verified 11/03/21 15:35 penicillin G [PENICILLIN G] Allergy Mild Verified 11/03/21 15:35 acetaminophen Allergy Verified 11/03/21 15:35 [From Tylenol-Codeine #3] Penicillins Allergy Verified 11/03/21 15:35 Worker's Comp Is this a Worker's Comp case?: No Is this an H Worker's Comp?: No Is this a [place] Worker's Comp?: No [facility] Disclaimer: The information contained in this section may have been updated after the patient was seen, as this information can be updated by other users. Social History (System 10/22/20 @ 13:14 by Teresa Womack) Smoking Status: Current every day smoker tobacco type: cigarettes packs per day: 1 alcohol intake: never substance use type: heroin current occupational status: unemployed Travel in the last 8 weeks: None household members: spouse housing: house caffeine: No ROS Obtained: Yes All systems reviewed & no additional complaints except as documented Constitutional Constitutional: Denies chills and Denies fever(s) Eyes Eyes: Denies eye discharge ENT Ears, Nose, Mouth, and Throat: Denies dizziness, Denies otalgia and Denies sore throat Cardiovascular Cardiovascular: Denies chest pain Respiratory Respiratory: Denies shortness of breath, Denies chest congestion, Denies cough, Denies stridor and Denies wheezing Gastrointestinal Gastrointestingal: Denies nausea or vomiting Musculoskeletal Musculoskeletal: Reports system reviewed and no additional complaints, except as documented and Denies arthralgias Integumentary/Breasts Skin/Breast: Denies rash Neurologic Neurologic: Denies dizziness and Denies paresthesias Allergic/Im
[2024-03-01 19:37] VITALS: BP 136/91; PULSE 100; RESP 20; TEMP 36.6; O2SAT 97
--- NOTE | 2024-03-05 08:18 | PC.NURSE ---
Relayed the message to switch her antibiotic from clindamycin to doxycycline.
== END 2024-03-01 19:38 | disposition home or self-care (01) ==
PROVIDERS: Emergency Provider Nurse Practitioner Family
DX: J34.0 Abscess, furuncle and carbuncle of nose; B95.7 Other staphylococcus as the cause of diseases classified elsewhere; L03.211 Cellulitis of face; F17.210 Nicotine dependence, cigarettes, uncomplicated
CPT/HCPCS: 87070; 87186; 87205; 96372; 99212; 99214; G0463; J1885

== ENCOUNTER 2024-08-08 16:53 | Emergency (ER) | payer MEDICAID, SELFPAY ==
--- NOTE | 2024-08-08 16:49 | ECG_ITS ---
APPROVED REPORT Exam: Resting ECG HR:105 bpm ECG Measurements Heart Rate 105 AXES PA 153 P 65 QRSd 78 QRS 68 QT 391 T 45 QTc 452 Conclusion Sinus tachycardia Electronically signed by : VANDANA MARCUM, 08/08/2024 22:48:35
[2024-08-08 16:54] VITALS: BP 155/109; PULSE 109; RESP 18; TEMP 36.8; O2SAT 99; BMI 29.7
--- NOTE | 2024-08-08 17:03 | HMH.EDGENADL ---
Discharge Plan Disposition Patient Disposition: Home, Self-Care Condition: Good Prescriptions Prescriptions: No Action No Known Home Medications Referrals Follow up/Referrals: Provider,Referral, [Primary Care Provider] - See instructions Clinical Impressions Clinical Impression: Opiate abuse, episodic Accidental heroin overdose Qualifiers: Encounter type: initial encounter Qualified Code(s): T40.1X1A - Poisoning by heroin, accidental (unintentional), initial encounter Print Language Print Language: Yoruba Discharge ED Provider: Erich Watson General Adult HPI <ELIZABETH Patrick - Last Filed: 08/08/24 19:09> General Chief complaint: Overdose Stated complaint: POSS OVERDOSE Time Seen by Provider: 08/08/24 16:55 Mode of Arrival: EMS Source of Information: Patient and EMS Limitations: No Limitations Description of Symptoms (Recalled from ER Triage Doc. by RN): EMS reports they were called out for a heroine OD. pt confirms snorting heroine. EMS reports that they gave her 2 doses of narcan (1 intranasal and 1 IV.) pt is A&Ox4. pt c/o nausea and chills. pt states she does not have any other complaints at this time. pt states she snorted the heroine around 1400 today. The time before was yesterday. previous to these two it had been about 2yrs that she had been clean. pt denies any significant life stressors. states she is unsure why she did it. pt denies SI/HI. pt states she does not use any other recreational drugs. History of Present Illness HPI narrative: When overdosedPatient presents for evaluation. Patient has a long substance abuse history however has been sober for approximately 2 years but for the last 2 days has been snorting heroin.. Patient gives no life stressors or reason for losing her sobriety. EMS was called when she was found unresponsive and they gave her 2 doses of Narcan which restored her to consciousness. At the time of arrival patient only reports chills and nausea but denies chest pain fever chills hemoptysis hematochezia melena vomiting diarrhea Related Data Home Medications ?Medication ?Instructions ?Recorded ?Confirmed No Known Home Medications 08/08/24 08/08/24 Allergies Allergy/AdvReac Type Severity Reaction Status Date / Time codeine (CODEINE) Allergy Severe Nausea Verified 11/03/21 15:35 penicillin G (PENICILLIN G) Allergy Mild Other Verified 08/08/24 17:01 acetaminophen (From Allergy Unknown Verified 08/08/24 17:01 Tylenol-Codeine #3) allergy reaction Penicillins Allergy Unknown Verified 08/08/24 17:01 allergy reaction PFSH <ELIZABETH Patrick - Last Filed: 08/08/24 19:09> [facility], [facility] Disclaimer: The information contained in this section may have been updated after the patient was seen, as this information can be updated by other users. Social History (System 10/22/20 @ 13:14 by Teresa Womack) Smoking Status: Current every day smoker tobacco type: cigarettes packs per day: 1 alcohol intake: never substance use type: heroin current occupational status: unemployed Travel in the last 8 weeks: None household members: spouse housing: house caffeine: No Have you lived/traveled outside [place] in past 30 days?: No Contact w/someone who lives/traveled outside US past 30 days?: No Exposure to someone with infectious disease in past 14 days?: No Do you have a fever (greater than 100.4 F or 38 C)?: No Have you tested positive for COVID-19: No Exposed to someone with COVID-19 in past 14 days?: No Do you have a sore throat?: No Do you have a cough?: No Do you have any weakness?: No Do you have any diarrhea?: No Are you experiencing any unusual bleeding?: No Do you have any muscle aches/pain?: No Do you have any abdominal pain?: No Are you experiencing loss of taste or smell?: No Other Medical History Have you received the Flu Vaccine for this season: No Have you received the Pneumonia Vaccine: No <ELIZABETH Patrick - Last Filed: 08/08/24 19:09> ROS Obtained: Yes Systems reviewed as appropriate & no additional complaints except as documented Physical Exam <ELIZABETH Patrick - Last Filed: 08/08/24 19:09> General General appearance: alert and in no apparent distress Respiratory Respiratory exam: Present normal lung sounds bilaterally Cardiovascular Cardiovascular exam: Present tachycardia Neurological Exam Neurological exam: Present alert, oriented X3, CN II-XII intact and normal gait; Absent motor sensory deficit Psychiatric Psychiatric exam: Present normal affect and normal mood; Absent homicidal ideation or suicidal ideation Medical Decision Making <ELIZABETH Patrick - Last Filed: 08/08/24 19:09> Medical Records Medical records reviewed: Yes I reviewed the patient's medical records. Screening: Per USPSTF and CDC recommendations, given the prevalence of disease in our region, it is our hospital?s policy to screen for HIV and viral Hepatitis for all patients aged 18 and over and those with ongoing risk factors. Kit Inquiry Pt receiving controlled substance: No Vital Signs: 08/08/24 16:54 08/08/24 17:30 08/08/24 19:21 Temperature 98.2 F 97.9 F Temperature Source Oral Oral Pulse Rate 106 H 74 Pulse Rate [Left] 109 H Respiratory Rate 18 15 16 Blood Pressure 136/100 H 128/74 Blood Pressure [Right Arm] 155/109 H Blood Pressure Mean [Right Arm] 124 Blood Pressure Source Automatic Cuff Blood Pressure Source [Right Arm] Automatic Cuff Blood Pressure Position Supine Blood Pressure Position [Right Arm] Sitting 02 Sat by Pulse Oximetry 99 97 Oxygen Delivery Method Room Air Room Air Room Air Orders (Tests/Meds): ED MEDICATIONS Discontinued Medications Generic Name Dose Route Start Last Admin Trade Name Hoq PRN Reason Stop Dose Admin Lactated Ringer's 1,000 mls @ 999 mls/hr 08/08/24 17:04 08/08/24 17:07 Lactated Ringer's 1000 Ml Bag IV 08/08/24 18:04 999 mls/hr .Q1H1M ONE Administration Naloxone HCl 4 mg 08/08/24 18:44 08/08/24 18:46 Naloxone Hcl 4mg [place] 08/08/24 18:45 4 mg ONCE ONE Administration Ondansetron HCl 4 mg 08/08/24 17:04 08/08/24 17:13 Ondansetron 4mg/2ml Vial IV 08/08/24 17:05 4 mg ONCE ONE Administration ORDERS Category Date Time Status Consult Electronic Service Technician [CONS] Routine Cons 08/08/24 17:04 Active HIV Combo Stat Lab 08/08/24 17:00 Ordered Hepatitis C Ab Qual. W/ RFX Stat Lab 08/08/24 17:00 Ordered Medical Decision Narrative: In summary patient is a 48-year-old female who presents to the emergency department for evaluation of heroin overdose. Patient is initially hypertensive at 155/109 tachycardic at 109 with sinus tachycardia on the bedside monitor breathing 18 times a minute satting at 99% on room air upon arrival, afebrile at 98.2. Physical exam is remarkable for a Dwight Coma Score 15 patient is awake alert and oriented to person place and circumstance currently and cranial nerves II through XII are intact grossly to exam. Differential diagnosis includes heroin overdose versus opiate use disorder versus other illicit street drug overdose. Initial workup was considered however patient has no red flags and is mentating appropriately and retains capacity for decision making thus deferred. Initial interventions include crystalloid bolus and Zofran for her nausea. Given this the patient was placed in observation status at 1700. Medical necessity for observational status is observation for relapse/need for further doses of Narcan. The patient was provided serial reevaluations continuous cardiac monitoring and pulse oximetry while awaiting results. During reevaluation and during her stay of observation patient had no relapse or decreased level of consciousness. Patient is now back to baseline no longer nauseated and tolerating oral intake. Given this patient is appropriate for discharge home with a Narcan take-home pack. Total time in observation was 2 hours. <Erich Watson MD - Last Filed: 08/08/24 19:29> Vital Signs: 08/08/24 16:54 08/08/24 17:30 08/08/24 19:21 Temperature 98.2 F 97.9 F Temperature Source Oral Oral Pulse Rate 106 H 74 Pulse Rate [Left] 109 H Respiratory Rate 18 15 16 Blood Pressure 136/100 H 128/74 Blood Pressure [Right Arm] 155/109 H Blood Pressure Mean [Right Arm] 124 Blood Pressure Source Automatic Cuff Blood Pressure Source [Right Arm] Automatic Cuff Blood Pressure Position Supine Blood Pressure Position [Right Arm] Sitting 02 Sat by Pulse Oximetry 99 97 Oxygen Delivery Method Room Air Room Air Room Air Orders (Tests/Meds): ED MEDICATIONS Discontinued Medications Generic Name Dose Route Start Last Admin Trade Name Freq PRN Reason Stop Dose Admin Lactated Ringer's 1,000 mls @ 999 mls/hr 08/08/24 17:04 08/08/24 17:07 Lactated Ringer's 1000 Ml Bag IV 08/08/24 18:04 999 mls/hr .Q1H1M ONE Administration Naloxone HCl 4 mg 08/08/24 18:44 08/08/24 18:46 Naloxone Hcl 4mg [place] NS 08/08/24 18:45 4 mg ONCE ONE Administration Ondansetron HCl 4 mg 08/08/24 17:04 08/08/24 17:13 Ondansetron 4mg/2ml Vial IV 08/08/24 17:05 4 mg ONCE ONE Administration ORDERS Category Date Time Status Consult Electronic Service Technician [CONS] Routine Cons 08/08/24 17:04 Active HIV Combo Stat Lab 08/08/24 17:00 Ordered Hepatitis C Ab Qual. W/ RFX Stat Lab 08/08/24 17:00 Ordered Medical Decision Narrative: In summary patient is a 48-year-old female who presents to the emergency department for evaluation of heroin overdose. Patient is initially hypertensive at 155/109 tachycardic at 109 with sinus tachycardia on the bedside monitor breathing 18 times a minute satting at 99% on room air upon arrival, afebrile at 98.2. Physical exam is remarkable for a Dwight Coma Score 15 patient is awake alert and oriented to person place and circumstance currently and cranial nerves II through XII are intact grossly to exam. Differential diagnosis includes heroin overdose versus opiate use disorder versus other illicit street drug overdose. Initial workup was considered however patient has no red flags and is mentating appropriately and retains capacity for decision making thus deferred. Initial interventions include crystalloid bolus and Zofran for her nausea. Given this the patient was placed in observation status at 1700. Medical necessity for observational status is observation for relapse/need for further doses of Narcan. The patient was provided serial reevaluations continuous cardiac monitoring and pulse oximetry while awaiting results. During reevaluation and during her stay of observation patient had no relapse or decreased level of consciousness. Patient is now back to baseline no longer nauseated and tolerating oral intake. Given this patient is appropriate for discharge home with a Narcan take-home pack. Total time in observation was 2 hours. I was consulted by the [facility], and we discussed the complexity of the problems being addressed. I approved the treatment and management plan for this patient's care in the Emergency Department, thus performing a substantive portion of the medical decision making. Erich Watson MD Critical Care <ELIZABETH Patrick - Last Filed: 08/08/24 19:09> Critical Care Time Critical Care Time: No
[2024-08-08] MEDS: LACTATED RINGERS 1000ML 1,000 ML 999 ML IV (17:07)
[2024-08-08] MEDS: ONDANSETRON 4MG/2ML VIAL 4 MG IV (17:13)
[2024-08-08 17:30] VITALS: BP 136/100; PULSE 106; RESP 15; O2SAT 97
--- NOTE | 2024-08-08 17:33 | PC.NURSE ---
ROUNDED ON THE PT. THE PT VOICES THAT SHE DOES NOT NEED ANYTHING AT THIS TIME. CALL LIGHT IS WITHIN REACH OF THE PT. IS PRESENT AT THE BEDSIDE.
[2024-08-08] MEDS: NALOXONE HCL 4MG SPRAY 4 MG NS (18:46)
[2024-08-08 19:21] VITALS: BP 128/74; PULSE 74; RESP 16; TEMP 36.6; O2SAT 98
--- NOTE | 2024-08-08 19:21 | PC.NURSE ---
Patient D/C at 1918. Patient in room waiting on to get back to the hospital. IV removed. Catheter tip intact. Bleeding controlled.
--- NOTE | 2024-08-09 15:03 | PEERSUPPORT ---
Peer Support Note Patient Information Patient Information: DOS: 08/08/2024 Reason: OUD Overdose ? Drug(s) of Choice: heroin, Xanax, meth, thc Snorting, smoking Last Use: snorted heroin today ? Use Hx: Long time hopkins with OUD and other drugs. Pt has only used heroin a few times in the past year, this being one and she feels very shamed by this. ? Narcan/Self: multiple times ? Narcan/Others: multiple times ? ?Current use: Xanax. Meth, heroin, thc ? ? Previous MAT/MOUD: Vivitrol injection Allergic to Suboxone ? Current MAT/MOUD: None Desire for MAT/MOUD: None at this time ? Previous Treatment: [facility] Residential Treatment [facility] in [place], [place] ? Support System: None for recovery support ? Legal Issues: None; served her time as well as completed a drug court order in [facility]. No parole or probation ? Potential Barriers: Relationship with others who actively use Lack of connection to recovery Lack of Boundaries self/others Expectation from family ? Harm reduction: Connection to peer support for recovery support and resources. Narcan in hand at discharge Safety plan to refrain from using; awareness to risk of overdose or ? Motivation for Change: Pt is still in shock from overdose, says she doesn?t even know what happen. Patient chilling cold, and with headache. She has been narcaned multiple times in the past, this is the first time in a year. ? Recommendations: Residential Treatment for OUD: referrals provided ? Plan of Action: Refrain from using drugs and or alcohol Follow safety plan as discussed with peer support. Stay with someone who is aware of her recovery state and supportive Do not use alone Ps to follow up on 08/09/2024 ?
== END 2024-08-08 19:50 | disposition home or self-care (01) ==
PROVIDERS: Emergency Provider Emergency Medicine
DX: T40.1X1A Poisoning by heroin, accidental (unintentional), initial encounter (principal); F11.10 Opioid abuse, uncomplicated; R11.0 Nausea; R68.83 Chills (without fever)
CPT/HCPCS: 93005; 96365; 96374; 99285; J2405; J7120